=== PATIENT | female | born 1945 | race Caucasian/White ===

== ENCOUNTER 2019-03-11 18:12 | Inpatient (IN) | payer OTHER ==
[2019-03-11 18:45] VITALS: BP 134/77
[2019-03-11 19:15] VITALS: BP 134/77
[2019-03-11] MEDS ORDERED: VENTOLIN HFA 1818 GM INH (23:20)
[2019-03-11] MEDS ORDERED: LIPITOR80 MG PO (23:23)
[2019-03-11] MEDS ORDERED: ASA81BEC PO (23:23)
[2019-03-11] MEDS ORDERED: BRIVIACT50 MG PO (23:27)
[2019-03-11] MEDS ORDERED: COLACE100 MG PO (23:28)
[2019-03-11] MEDS ORDERED: VITAMIN B-12100 MC1 PO (23:28)
[2019-03-11] MEDS ORDERED: LEXAPRO 10 MG T10 M2 PO (23:29)
[2019-03-11] MEDS ORDERED: IBU800 MG PO (23:30)
[2019-03-11] MEDS ORDERED: VIMPAT100 MG PO (23:30)
[2019-03-11] MEDS ORDERED: LACTULOSE20 GM/30 M PO (23:31)
[2019-03-11] MEDS ORDERED: LITHIUM CARBON450 MG PO (23:32)
[2019-03-11] MEDS ORDERED: SYNTHROID88 MC1 PO (23:32)
[2019-03-11] MEDS ORDERED: LOSARTAN POTASS50 MG PO (23:33)
[2019-03-11] MEDS ORDERED: METOPROLOL TART25 MG PO (23:34)
[2019-03-11] MEDS ORDERED: OMEPRAZOLE 20 M20 M1 PO (23:35)
[2019-03-11] MEDS ORDERED: CENTRUM SILVER1 EAC4 PO (23:35)
[2019-03-11] MEDS ORDERED: SENNA8.6 MG PO (23:36)
--- NOTE | 2019-03-12 00:46 | NUR ---
Care assumed of patient at 1915: Patient resting in bed at start of shift. Patient alert and oriented to person only. Patient confused and forgetful. Patient speaking clear words, rambling at times. Patient calm and cooperative. Patient having disorganized thoughts at times. Patient denies SI/HI/AH/VH. No s/s of paranoia or delusional behaviors. Patient incontinent of bladder x1. Jessie care provided and linens changed. Patient has one hearing aide that she has removed to sleep. Medical records requested and received from [facility]. SIMRAN Hayward notified on behalf of Dr. Redd and has evaluated patient. Orders obtained for labs to be collected in AM. Discharge medication list reviewed with SIMRAN Fine on behalf of Dr. Galeana. Orders obtained for medications, Regular diet, DNR status, activity is up ad kaleb. Spoke with daughter, Aura TODD over the phone to verify code status. Aura does request for patient to be a DNR which is also documented in [facility] notes. Aura was notified that her mother took her HS medication and is resting well. Aura inquired which medication she received and is concerned because she had received dose of [place] 450mg at [facility] before she had discharged. This was verified with [facility] nurse, patient was provided [place] 450mg at 1637. SIMRAN Hayward, is aware. Order obtained to collect [place] level in the AM. Aura was provided with security code and visitation hours. Per [facility], patient has a hx of bipolar disorder which was diagnosed approximately 40 years ago. Patient had ECT treatments completed in the past for this diagnosis. Family reports that patient was at [facility] Psych when she had a seizure. She was then admitted to [facility] medical for stabilization. She was then admitted to our unit for medication adjustment, per family. Patient declined HS snack. Patient provided HS medication whole with water. Patient required assistance with holding water cup and tilting the cup to take a drink. Otherwise tolerated well. Order placed for PT/OT due to increased weakness and length of medical hospitalization. Order placed for brake press operator consult due to poor intake (reported by daughter).
[2019-03-12 05:48] LABS: HEMATOCRIT 37.9 % (37.0-47.0); HEMOGLOBIN 12.3 gm/dL (12.0-15.0); MCH 30.4 pg (26.0-34.0); MCHC 32.5 g/dL (28.0-37.0); MCV 93.5 fL (80.0-100.0); RBC 4.06 mil/uL (4.20-5.00); RDW 13.4 % (10.5-14.5); WBC 11.7 thou/uL (4.0-11.0)
[2019-03-12 06:14] LABS: ALBUMIN 2.9 g/dL (3.4-5.0); CALCIUM 11.5 mg/dL (8.5-10.1); CREATININE 1.1 mg/dL (0.6-1.0); POTASSIUM 3.4 mmol/L (3.5-5.1); TOTAL BILIRUBIN 0.3 mg/dL (<0.1-1.0); TOTAL PROTEIN 5.8 g/dL (6.4-8.2)
[2019-03-12 06:39] LABS: TSH 5.073 uIU/mL (0.358-3.740)
[2019-03-12 07:21] LABS: FOLIC ACID 19.6 ng/mL (8.6-58.9)
[2019-03-12 17:10] VITALS: BP 115/73
--- NOTE | 2019-03-12 17:26 | NUR ---
THE PATIENT HAS BEEN QUIET AND CALM THROUGH OUT THE DAY. SHE HAS TO HAVE ASSISTANCE WITH MEALS. SHE HAS A DIFFICULT TIME WITH MOVEMENT OF HER ARMS AND HANDS. UNSTEADY ON FEET. THE PATIENT IS INCONTINENT BUT HAS ASKED TO USE THE TOILET AT TIMES. HER DAUGHTER IS SUPPORTIVE. SHE HELPED FEED THE PATIENT HER DINNER THIS EVENING. THE PATIENT WAS ADMINISTERED KEPRA TODAY FOR SZ. SHE HAS BEEN COOPERATIVE AND COMPLIANT WITH STAFF.
--- NOTE | 2019-03-12 18:34 | NUR ---
LAB CALLED AND NOTIFIED THIS RN THAT THE LITHIUM IS 1.[address] WOODY NOTIFIED. HE ORDERED LITHIUM TO BE HELD TONIGHT. RESTART TOMORROW. LAB IS TO BE REPEATED Friday AT 6 PM.
[2019-03-12 20:00] VITALS: BP 89/43
--- NOTE | 2019-03-13 01:09 | NUR ---
Care assumed of patient at 1915: Patient alert and oriented to person only. Patient resting in bed at start of shift. Easily arousable. Head of bed elevated and nursing assessment completed. Patient calm and cooperative. Patient rambling with clear speech at times. Patient smiled and made good eye contact with nurse. Not able to answer most questions appropriately due to confusion and forgetfulness. Denies pain or discomfort. Declined HS snack. Took HS medication whole without difficulty. Drank cup of apple juice with medication. Denies SI/HI/AH/VH. No s/s of delusional or paranoia behaviors observed. HS [place] dose held per MD order. Spoke with daughter Aura who requested patient update. Patient incontinent of bladder x1. Jessie care completed and linens changed. Patient continues to rest quietly in bed at this time.
[2019-03-13 08:19] VITALS: BP 140/79
[2019-03-13 08:34] LABS: CREATININE 1.3 mg/dL (0.6-1.0); PHOSPHORUS 3.6 mg/dL (2.5-4.9)
[2019-03-13 08:38] LABS: CALCIUM 12.1 mg/dL (8.5-10.1)
--- NOTE | 2019-03-13 10:07 | NUR ---
UP IN DINING ROOM, SHE IS AWAKE AND ALERT BUT CONFUSED, SHE REFUSED HER MEDICATIONS THIS A.M. SHE TOOK A FEW BITES OF FOOD, BUT THEN DECLINED MORE, SHE IS ORIENTED TO HER NAME, WHEN ASKED QUESTIONS SHE WAS NOT SURE OF THE DATE, TIME OR PLACE, LAB CALLED WITH CRITICAL CALCIUM RESULT 12.4, SPOKE WITH JOBY REMELT OPERATOR AND CALLED TO DR. TORRES AT 0900, WE ARE ENCOURAGING FLUIDS FOR THE CALCIUM LEVEL, DR. TORRES WILL RE ASSES WHEN HE ROUNDS. ORDERS FROM JOBY TO HOLD LITHIUM AGAIN TONIGHT FOR HIGH LEVEL LAB TO BE DONE TOMORROW. CONTINUE TO MONITOR FOR BEHAVIORS AND SAFETY.
[2019-03-13 19:55] VITALS: BP 134/68
--- NOTE | 2019-03-13 23:22 | NUR ---
Care assumed of patient at 191: Patient seated in w/c in day room at table at start of shift. Patient alert and oriented to person. Patient confused and forgetful. Patient asking for the doctor and for her son this evening. Patient irritable and agitated. Patient asking why she is in the hospital. Educated that the doctors are looking at her medication regimen. Patient states that she hasn't seen the doctor or her family for "days" and nurse is a "big liar". Patient did not show any physical aggression. Patient denies pain or discomfort. Patient having disorganized speech, repetitive with what she states. Patient has a saline lock to her left hand. No redness, drainage or swelling observed. Patient continent and incontinent of bladder this evening. Jessie care provided, linens changed and barrier cream applied to buttock. Patient took HS medications whole but was very agitated while taking medications. Patient required one step simple directions. Patient ate approximately 25% of yogurt fed to her. Patient did drink 120cc water with minimal assist. Patient denies SI/HI/AH/VH. Possible paranoia present. Stated she did not want to eat the rest of her yogurt because "you guys put medicine in that stuff". Patient educated and shown that her pills were whole in the cup in front of her but she was not directable. Patient assisted to bed with mod assist x1. Patient has been resting quietly.
[2019-03-14 06:12] LABS: CALCIUM 11.5 mg/dL (8.5-10.1); CREATININE 1.3 mg/dL (0.6-1.0)
[2019-03-14 06:15] LABS: POTASSIUM 2.8 mmol/L (3.5-5.1)
--- NOTE | 2019-03-14 06:22 | NUR ---
Labs obtained this AM. Lab notified nurse of K+ level of 2.8. Nurse notified SIMRAN Hayward. Order obtained for KCL 20meq q1 hour x4 doses; repeat BMP in 4 hours.
[2019-03-14 07:43] VITALS: BP 135/73
--- NOTE | 2019-03-14 11:15 | HC ---
[facility] [place] [address] CONSULTATION Name: LORENZO RAMIREZ Room #: 521B-B ADM IN M.R.#: [id number] Admission: 03/11/19 Attend Phys: Davis Galeana DO Discharge: Date of : 41 Report #: [id number] THIS REPORT FOR: //name// CC: Davis Galeana En Clark DATE OF SERVICE: 03/13/2019 ENDOCRINE CONSULTATION NOTE CONSULTING PHYSICIAN: Dr. Davis Galeana. REASON FOR CONSULTATION: Hypercalcemia. HISTORY OF PRESENT ILLNESS: This is a 73-year-old female patient who had a medical background is noted for hypertension, dementia, depression, bipolar disorder, GERD and seizure disorder. The patient has had a few weeks stay at [facility] medical unit due to bipolar disorder and depressive symptoms and was transferred to the Adult Behavioral Unit at [facility] 2 days ago. During an initial workup upon her arrival to [facility], the patient was found to have hypercalcemia at 11.5 that was later confirmed at 12.1 mg/dL. The patient is able to answer basic questions. She provided some details, but she was minimally conversant. Her daughter, Aura, was present and she provided much of the history and answers. Specifically, the patient does not have a recollection of hypercalcemia in the past; however, she believes that she had dealt with kidney stones at least once in her lifetime. She has not had issues with fractures, nausea, vomiting, constipation, abdominal pain, but she did deal with sporadic muscle and bone aches over the past few months. The patient's daughter comments that the patient had a generalized decline over the past few months and seems more depressed and less interactive. Also, her p.o. intake had been minimal. Specifically, over the past few days, the patient has had very little to eat or drink and the daughter believes that she is dehydrated. The patient's body weight had gone down over the past month, but not prior. REVIEW OF SYSTEMS: CONSTITUTIONAL: Fatigue, tiredness, weight loss over the past month. No fever or chills. HEENT: Negative for sinus pain, ear drainage. PULMONARY: Occasional shortness of breath and cough. No hemoptysis. CARDIAC: No syncope, chest pain, palpitation, occasional leg edema. GASTROINTESTINAL: Negative for nausea, vomiting, abdominal pain, constipation. [address] [address] CONSULTATION Name: AUGUSTOMARY KATELORENZO Room #: 521B-B [facility] IN M.R.#: [id number] Admission: 03/11/19 Attend Phys: Davis Galeana DO Discharge: Date of : 41 Report #: [id number] MUSCULOSKELETAL: Noted for arthralgia, myalgia. NEUROLOGY: No dizziness, lightheadedness, or loss of consciousness, but the patient was reported to have a seizure as of a few days ago. PSYCHIATRIC: Deepening depression, bipolar disorder, minimal interaction and conversation. SKIN: No rash, ulceration, discoloration or other major abnormalities. Otherwise, review of systems noncontributory other than those mentioned in HPI. PAST MEDICAL HISTORY: 1. Bipolar disorder. 2. Depression. 3. Hypertension. 4. Seizure disorder. 5. Hypothyroidism. 6. Metabolic encephalopathy. 7. Rheumatic mitral valve disease. 8. Acute kidney injury. 9. Vitamin B12 deficiency. 10. Cerebrovascular accident. CURRENT MEDICATIONS: Aspirin 81 mg daily, cyanocobalamin 100 mcg daily, escitalopram 50 mg daily, lactulose 20 mg b.i.d., losartan 50 mg daily, metoprolol 25 mg daily, multivitamins daily, levothyroxine 88 mcg daily, pantoprazole 40 mg daily, atorvastatin 80 mg daily, docusate 100 mg at bedtime, haloperidol 2.5 mg q. 4 hours p.r.n., lithium 450 mg at bedtime. ALLERGIES: LISINOPRIL. FAMILY HISTORY: Noncontributory. SOCIAL HISTORY: The patient is a as of 4 years ago. She lives with her son. She is an ex-smoker. There is no active use of tobacco, alcohol or illicit drugs. PHYSICAL EXAMINATION: GENERAL: An elderly female patient, sitting in a wheelchair, appears lethargic, but not in apparent pain or distress. VITAL SIGNS: Blood pressure is 140/79 mmHg, heart rate is 92 beats per minute, respirations 20 per minute, temperature 37.1 degrees. CONSTITUTIONAL: Elderly female patient who appears underweight, lethargic, but not in apparent pain or distress. HEENT: Anicteric sclerae. Intact extraocular motions. NECK: Supple, without JVD, carotid bruits or lymphadenopathy. I do not appreciate thyromegaly. CHEST: Noted for moderate air entry with scattered rales. [facility] [address] [place] [address] CONSULTATION Name: LORENZO RAMIREZ Room #: [facility] ADM IN M.R.#: [id number] Admission: 03/11/19 Attend Phys: Davis Galeana, DO Discharge: Date of : 41 Report #: [id number] HEART: Regular rate and rhythm without murmurs, rubs or gallops. ABDOMEN: Soft and lax, without guarding, tenderness, or organomegaly. EXTREMITIES: Lower extremity exam, trace ankle edema. No skin breaks, ulcerations or other deformities. NEUROLOGIC: Lethargic, but interactive, awake, alert. The exam is largely nonfocal. PSYCH: Flat mood and affect, minimally conversant. LABORATORY RESULTS: Sodium 138, potassium 3.4, chloride 105, CO2 of 25, anion gap of 8, BUN 11, creatinine 1.3, glucose 91. AST 20, total bilirubin 0.3, calcium 11.5 and is higher today at 12.1 mg/dL, phosphorus 3.6, alkaline phosphatase 85, ALT 22, total protein 5.8, albumin 2.9, GFR 48, ammonia 32. White blood count 11.7, hemoglobin 12.3, hematocrit 37.9, platelets 422. TSH is 5.073, folate 19.6, vitamin B12 ____, vitamin D and PTH levels are pending. ASSESSMENT AND PLAN: 1. Hypercalcemia. The patient has documented hypercalcemia on 2 occasions over the past 24 hours and with her latter calcium level of 12.1 mg/dL, the patient can be labeled as having severe hypercalcemia. Whether this has contributed at least partially to her declining mental state, poor appetite and worsening kidney function is unclear, but it is certainly possible. I discussed this issue with the patient and her daughter, Aura, at length and I counseled them about the potential etiologies for hypercalcemia. I stressed the fact that given the severity of her hypercalcemia that we need to initiate medical management to be aimed at alleviating the level of hypercalcemia that is noted here. Namely, I would like the patient to be aggressively hydrated and her calcium monitor closely. In the event that she is not responsive to these measures, then one could consider diuresis along with hydration and potentially pharmaceutical intervention in the form of zoledronic acid or calcitonin if needed. I am hopeful; however, that aggressive hydration will result in a significant improvement short term. Besides the immediate management of hypercalcemia and the frequent monitoring of this issue, defining the causative etiology would be a rather crucial so that we could definitively help the patient with this issue. Hyperparathyroidism is the likely suspect and Dr. Galeana had already ordered a PTH level and vitamin D levels. I will await these and if her outlook is explained on the basis of a primary hyperparathyroidism, then I will proceed with further studies to localize the causative PTH adenoma as the patient would be indicated for surgery at least on the basis of documenting severe hypercalcemia. However, if she does not prove to be hyperparathyroid then secondary workup for hypercalcemia will be needed. 2. Hypothyroidism. The patient has longstanding hypothyroidism and is maintained on levothyroxine 88 mcg daily. Her TSH is indicative of inadequate control. I will raise her dosage to 100 mcg daily. [address] [address] CONSULTATION Name: LORENZO RAIMREZ Room #: 521B-B [facility] IN .R.#: [id number] Admission: 03/11/19 Attend Phys: Davis Galeana, DO Discharge: Date of : 43 Report #: [id number] 3. Hypertension. The patient's level of blood pressure control is adequate, she is to continue with the current regimen. 4. Hyperlipidemia. The patient is on atorvastatin therapy and tolerates it well, she is advised to continue the same. I reviewed the patient's medical records, laboratory data and other personal and clinical information from her electronic chart for over 35 minutes. I appreciate this consultation by Dr. Galeana. <ELECTRONICALLY SIGNED> By: Bonita Galicia MD 03/14/19 1115 1202 [id number] Bonita Galicia MD /nt
[2019-03-14 11:18] LABS: CREATININE 1.2 mg/dL (0.6-1.0); POTASSIUM 3.6 mmol/L (3.5-5.1)
[2019-03-14 11:19] LABS: CALCIUM 12.2 mg/dL (8.5-10.1)
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
--- NOTE | 2019-03-14 16:51 | NUR ---
NOTED TO HAVE LABILE MOOD THROUGHOUT SHIFT-INITALLY THIS AM WAS COOPERATIVE,CALM AND FOLLOWS VERBAL INSTRUCTIONS -COMPLIENT WITH TAKING MULTIPLE DOSES OF POTASSIUM Q 1 HR ORDERED BY MD-TAKE PO FLUIDS WELL FED AT MEALTIMES BY THIS RN BUT IS RESISITVE WITH FOOD AFTER TAKING A FEW BITES STATING "I'M FULL" OR "NO ARELY HAD ENOUGH" DID TAKE ALL OF ENSURE DRINK AND ENSURE PUDDING AT APPROX 1100- CRITICAL CALCIUM OF 12.2 CALLED TO ELEVATOR OPERATOR SERVICE AT APPROX 1030-DR. TORRES CONTACTED AT 1035-DR. BOYD ON UNIT TO SEE PT AT APPROX 1130 AND SPOKE WITH DAUGHTER PEYTON CONTE AT HER REQUEST-DAUGHTER REQUESTING PT BE TRANSFERED TO MEDICAL FLOOR AND THIS MESSAGE RELAYED TO BOTH DR. COWAN AND DR. [id number] DID AGREE TO HAVE PT STAY ON UNIT WITH IV BOLUS OF NS 0.9 AND 20MEQ KCL-WITH PLAN TO REPEAT LABS AT 1800 AND 0400 WITH POSSIBLE DC TO MED SURG IF NO IMPROVEMENT-DAUGHTER IN AGREEMENT WITH PLAN. IV BOLUS STARTED AT APPROX 1300 IN EXISITING SALINE LOCK IN LEFT HAND-INFUSED 1000ML AT 250CC/HR AND DC'D AT APPROX 1800. WAS NOTED TO BE SEDATED AFTER AM MEDICATIONS BUT INCREASINGLY ALERT WITH NOTED AGITATION,IRRITABILITY AND PARANOIA PM PROGRESSES-SWEARING AT STAFF ACCUSING STAFF OF TRYING TO "PUSH ME OVER" WHEN BEING ASSISTED BY STAFF TO BR-PULLING AWAY ATTEMPTING TO KICK OUT AT STAFF LOOSING BALANCE AND WOULD HAVE FALLEN TO FLOOR IF NOT BEING ASSISTED -HALDOL 2.5 MG PO OFFERED AND REFUSED AT APPROX 1630-WILL CONINUE TO MONITOR
[2019-03-14 19:49] LABS: ALBUMIN 3.1 g/dL (3.4-5.0); CALCIUM 11.9 mg/dL (8.5-10.1); CREATININE 1.2 mg/dL (0.6-1.0); POTASSIUM 4.6 mmol/L (3.5-5.1); TOTAL BILIRUBIN 0.4 mg/dL (<0.1-1.0); TOTAL PROTEIN 6.1 g/dL (6.4-8.2)
[2019-03-14 20:12] VITALS: BP 159/83
[2019-03-15 05:57] LABS: CALCIUM 11.6 mg/dL (8.5-10.1); CREATININE 1.2 mg/dL (0.6-1.0); TOTAL BILIRUBIN 0.4 mg/dL (<0.1-1.0); TOTAL PROTEIN 5.6 g/dL (6.4-8.2)
[2019-03-15 05:58] VITALS: BP 159/83
[2019-03-15 09:04] VITALS: BP 158/83
[2019-03-15 13:48] VITALS: BP 158/83
[2019-03-15] MEDS ORDERED: KEPPRA 500 MG500 M1 PO (14:35)
[2019-03-15] MEDS ORDERED: VIMPAT100 MG PO (14:35)
[2019-03-15] MEDS ORDERED: SYNTHROID100 MC1 PO (14:37)
[2019-03-15] MEDS ORDERED: PROTONIX 20 MG20 MG PO (14:37)
--- NOTE | 2019-03-15 15:56 | NUR ---
SW spoke with [facility] for a possible transfer and finally family decided to keep this pt at this hospital and will transfer to the medical unit. This was reported to Dr alfaro.
--- NOTE | 2019-03-15 16:28 | NUR ---
Patient discharged to medical floor. Patient leaving unit with IV in place. Patient traveling to medical floor via wheelchair with RN.
--- NOTE | 2019-03-15 16:39 | NUR ---
PT. ESCORTED TO ROOM 455. AMANUEL BELL RN GAVE REPORT TO NURSING FLOOR. ALL BELONGINGS SENT WITH THE PT.
[2019-03-15] MEDS ORDERED: SENOKOT8.6 MG PO (18:07)
[2019-03-15] MEDS ORDERED: DULCOLAX STOOL100 M1 PO (18:08)
[2019-03-15] MEDS ORDERED: HALDOL5 MG/1 ML IM (18:10)
[2019-03-15] MEDS ORDERED: HALOPERIDOL 2 MG2 M1 PO (18:11)
[2019-03-15] MEDS ORDERED: SEROQUEL 25 MG25 MG PO (18:15)
[2019-03-15] MEDS ORDERED: ACETAMINOPHEN650 M5 PO (18:18)
[2019-03-15] MEDS ORDERED: CEPACOL SORE T1 EAC7 PO (18:21)
[2019-03-15] MEDS ORDERED: [UNRECOGNIZED DRUG - OTHER] TOP (18:22)
[2019-03-15] MEDS ORDERED: ONDANSETRON HCL4 M3 PO (18:23)
[2019-03-15] MEDS ORDERED: NF PO ×2 (18:34→18:35)
--- NOTE | 2019-03-16 22:24 | D ---
[facility] [place] [address] DISCHARGE SUMMARY Name: AUGUSTOMARY KATELORENZO Jessica Room #: 521B-B [facility] IN M.R.#: [id number] Admission: 03/11/19 Attend Phys: Davis Galeana DO Discharge: 03/15/19 Date of : 41 Report #: [id number] THIS REPORT FOR: //name// CC: Davis Galeana En Clark DATE OF SERVICE: 03/15/2019 INPATIENT PSYCHIATRIC DISCHARGE SUMMARY ATTENDING PHYSICIAN: Davis Galeana DO. USER EXPERIENCE ARCHITECT: Randy Buenrostro MD DISCHARGE DIAGNOSES: Delirium secondary to general medical condition, namely critical hypercalcemia, acute kidney injury, electrolyte disturbance, also major depression by history. The patient is being discharged to the medical surgical unit at [facility] for additional evaluation and care including malignancy workup, endocrinology consultation and treatment of her kidney injury. DISCHARGE MEDICATIONS: Lacosamide 100 mg p.o. b.i.d., Keppra 500 mg p.o. b.i.d., pantoprazole 40 mg p.o. daily, levothyroxine 100 mcg p.o. daily, albuterol 2 puffs inhaled q. 6 p.r.n. for wheezing, aspirin 81 mg p.o. daily for cardioprotection, atorvastatin 80 mg p.o. at bedtime for hyperlipidemia, cyanocobalamin 100 mcg p.o. daily, Lexapro 15 mg p.o. daily for depression, Lactulose 20 mg p.o. b.i.d. for history of hyperalbuminemia, losartan 50 mg p.o. daily for hypertension, metoprolol tartrate 25 mg p.o. daily for hypertension, multivitamin p.o. daily. DIET: The patient's diet will be per the medical team. ACTIVITY LEVEL: As tolerated. The patient does not need suicide precautions. REASON FOR ADMISSION TO GERIATRIC PSYCHIATRY: The patient was interim hospital transfer from [facility] for refractory major depression. HOSPITAL COURSE: The patient was admitted to the geriatric psychiatry unit. Unfortunately, a little progress was made. The patient has been on lithium for 40 years and aside from her hypercalcemia which became critical, her value at Research was 10.9 with a low albumin, so it was more like 11.9, but she increased to 13 range when adjusted for hyperalbuminemia. Her PTH is normal range at 22, suggesting this is not a parathyroid etiology. Other crucial labs, white count 11.7, platelet count 422. Chemistries include albumin 3.0, total protein 5.6, ALT 23, calcium 11.6, ionized calcium 7.3, sodium 140. Heeia level also during her psychiatric stay came back at 1.6. [address] [address] DISCHARGE SUMMARY Name: LORENZO RAMIREZ Room #: 521B-B [facility] IN M.R.#: [id number] Admission: 03/11/19 Attend Phys: Davis Galeana DO Discharge: 03/15/19 Date of : 41 Report #: [id number] CONDITION AT DISCHARGE: Guarded. PHYSICAL EXAMINATION: VITAL SIGNS: On the day of discharge, temperature 36.3, pulse 71, respirations 17, BP 158/83, O2 sat 97%. MUSCULOSKELETAL: Seated in wheelchair, appearing somewhat weak, lethargic. MENTAL STATUS EXAMINATION: This is a well-developed female, wearing glasses, appearing stated age. Attention limited. Concentration limited. Speech soft, slow. Thought process linear and limited. Thought content, relative poverty of thought. No psychomotor agitation. No psychomotor retardation. Denied SI, HI. Some helplessness, some hopelessness. Memory not formally tested. Insight limited. Judgment limited. Fund of knowledge below average at present time. PROGNOSIS: For this patient is guarded and will depend on her response to medical treatment and etiology of her abnormal physiology. Also please note I will be happy to consult on her while she is on the med/surg floor as desired by Dr. Buenrostro. <ELECTRONICALLY SIGNED> By: Davis Galeana DO 03/16/19 2224 [id number] Davis Galeana DO /nt
== END 2019-03-15 16:30 | DRG 881 ==
LOC: SBH
PROVIDERS: Hospitalist; Internal Medicine; Nurse Practitioner Family; ADMIT Psychiatry & Neurology Psychiatry
DX: F32.9 Major depressive disorder, single episode, unspecified (principal); E43 Unspecified severe protein-calorie malnutrition; N17.9 Acute kidney failure, unspecified; E72.20 Disorder of urea cycle metabolism, unspecified; R41.0 Disorientation, unspecified; G40.909 Epilepsy, unspecified, not intractable, without status epilepticus; F03.90 Unspecified dementia, unspecified severity, without behavioral disturbance, psychotic disturbance, mood disturbance, and anxiety; I10 Essential (primary) hypertension; E78.5 Hyperlipidemia, unspecified; K21.9 Gastro-esophageal reflux disease without esophagitis; Z66 Do not resuscitate; K59.00 Constipation, unspecified; E03.9 Hypothyroidism, unspecified; R13.10 Dysphagia, unspecified; E53.8 Deficiency of other specified B group vitamins; E83.52 Hypercalcemia; Z79.82 Long term (current) use of aspirin; Z79.899 Other long term (current) drug therapy; Z81.1 Family history of alcohol abuse and dependence; E86.0 Dehydration
CPT/HCPCS: 10880

== ENCOUNTER 2019-03-15 15:12 | Inpatient (IN) | payer OTHER ==
[~2019-03-15] VITALS: Ht 160 cm; Wt 59.0 kg
[~2019-03-15 15:12] MED LIST: ASA81BEC PO; BRIVIACT50 MG PO; CENTRUM SILVER1 EAC4 PO; COLACE100 MG PO; IBU800 MG PO; KEPPRA 500 MG500 M1 PO; LACTULOSE20 GM/30 M PO; LEXAPRO 10 MG T10 M2 PO; LIPITOR80 MG PO; LITHIUM CARBON450 MG PO; LOSARTAN POTASS50 MG PO; METOPROLOL TART25 MG PO; OMEPRAZOLE 20 M20 M1 PO; PROTONIX 20 MG20 MG PO; SENNA8.6 MG PO; SYNTHROID100 MC1 PO; SYNTHROID88 MC1 PO; VENTOLIN HFA 1818 GM INH; VIMPAT100 MG PO; VITAMIN B-12100 MC1 PO
[2019-03-15] MEDS ORDERED: SENOKOT8.6 MG PO (18:07)
[2019-03-15] MEDS ORDERED: DULCOLAX STOOL100 M1 PO (18:08)
[2019-03-15] MEDS ORDERED: HALDOL5 MG/1 ML IM (18:10)
[2019-03-15] MEDS ORDERED: HALOPERIDOL 2 MG2 M1 PO (18:11)
[2019-03-15] MEDS ORDERED: ACETAMINOPHEN650 M5 PO (18:18)
[2019-03-15] MEDS ORDERED: CEPACOL SORE T1 EAC7 PO (18:21)
[2019-03-15] MEDS ORDERED: [UNRECOGNIZED DRUG - OTHER] TOP (18:22)
[2019-03-15] MEDS ORDERED: ONDANSETRON HCL4 M3 PO (18:23)
[2019-03-15] MEDS ORDERED: NF PO ×2 (18:34→18:35)
--- NOTE | 2019-03-15 19:53 | NUR ---
Received pt from with IV line on the left hand [facility] IV running. Pt placed on bed with family at the bedside. Med req done and MD informed. Endorsed to the night nurse. VS stable.
[2019-03-15 20:15] VITALS: BP 146/76
--- NOTE | 2019-03-16 02:47 | NUR ---
PT PRESENTS SUPINE IN BED WITH FAMILY AT BEDSIDE AT BEGINNING OF SHIFT. PT LETHARGIC, DISORIENTED X4. PT RESPONSIVE TO NAME AND TOUCH. PT HARD OF HEARING, NO HEARING AIDES PRESENT AT THIS TIME. PT VOCAL TONE LOW. FLACC SCORE OF 0. PT HAS NO REPORTS OF PAIN. PT OBSERVED WITH APNEA WHILE SLEEPING. LUNGS CLEAR TO AUSCULTATION. BOWEL SOUNDS HYPOACTIVE. TRACE EDEMA NOTED IN BLE. PT CONTINUES ON MECHANICAL SOFT DIET. MEDICATIONS CRUSHED AND PUT IN APPLESAUCE FOR ADMINISTRATION. PT TOLERATING THIN LIQUIDS WITHOUT ISSUE. PT REPOSITIONED Q2HR TO PROMOTE SKIN INTEGRITY. EXTERNAL FEMALE CATHETHER IN PLACE PT REMAINS INCONTINENT OF BOWEL AND BLADDER.ENCOURAGED TO NOTIFY STAFF OF ALL CONCERNS. CALL LIGHT WITHIN REACH, BED AT LOWEST POSITION, BED ALARM ON.
[2019-03-16 03:23] VITALS: BP 148/82
[2019-03-16 06:07] LABS: BASOPHILS 0.9 % (0.0-2.0); EOSINOPHILS 9.5 % (0.0-3.0); HEMATOCRIT 32.3 % (37.0-47.0); HEMOGLOBIN 10.7 gm/dL (12.0-15.0); LYMPHOCYTES 15.9 % (24.0-44.0); MCH 30.9 pg (26.0-34.0); MCHC 33.1 g/dL (28.0-37.0); MCV 93.6 fL (80.0-100.0); MONOCYTES 6.6 % (1.0-8.0); PLATELET COUNT 273 thou/uL (150-400); POLYS 67.1 % (36.0-66.0); RBC 3.45 mil/uL (4.20-5.00); RDW 13.5 % (10.5-14.5); WBC 8.9 thou/uL (4.0-11.0)
[2019-03-16 06:14] LABS: CALCIUM 10.9 mg/dL (8.5-10.1); CREATININE 1.2 mg/dL (0.6-1.0); MAGNESIUM 1.8 mg/dL (1.8-2.4); POTASSIUM 3.4 mmol/L (3.5-5.1)
[2019-03-16 07:39] VITALS: BP 146/81
[2019-03-16 07:41] LABS: URINE BILIRUBIN NEGATIVE (Negative); URINE BLOOD TRACE (Negative); URINE CLARITY CLOUDY; URINE COLOR YELLOW; URINE GLUCOSE-RANDOM* NEGATIVE (Negative); URINE KETONES NEGATIVE (Negative); URINE NITRITE-REFLEX NEGATIVE (Negative); URINE PROTEIN (DIPSTICK) NEGATIVE (Negative); URINE UROBILINOGEN 0.2 E.U./dl (0.2-1.0)
[2019-03-16 07:44] LABS: URINE LEUKOCYTES-REFLEX 3+ (Negative)
[2019-03-16 08:36] LABS: AMORPHOUS URATES Moderate /LPF (None Seen); BACTERIA-REFLEX 1-9 Few /HPF (None Seen); CASTS None Seen /LPF (None Seen); SQUAMOUS 0-3 Few /LPF (0-3); URINE RBC 0-2 Rare /HPF (0-2); URINE WBC-REFLEX >25 Many /HPF (0-5); WBC CLUMPS Few (None Seen)
--- NOTE | 2019-03-16 10:56 | NUR ---
Nutrition: REC consider change IVFs to Clinimix PPN at 100 mL/hr to prevent further nutritional decline/until po improves. Pt with severe malnutrition, weight loss, poor intake past ~3 weeks. Nutrition interventions in place.
[2019-03-16 15:42] VITALS: BP 110/70
--- NOTE | 2019-03-16 15:51 | NUR ---
PT ADMITTED FROM [address] [place] [address] RELATED TO HYPERCALCEMIA, METABIOLIC ENCEPHALOPATHY. CM REVIEWED CHART AND SPOKE WITH CARE TEAM. CM MET WITH PT AND SON CASSANDRA AT BEDSIDE THIS DAY. PT WAS SLEEPING AND SON ANSWERED QUESTIONS. HE INDICATED THAT PT HAD BEEN LIVING IN A HOUSE WITH HIM WITH 10 STEPS TO ENTER AND NO STEPS INSIDE. 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 HE INDICATED THAT PT'S PCP IS DR. KELLER. TRELL CALLED AND SPOKE WITH PT'S DTR HC DPOA AND SHE INDICATED THAT PT HADN'T WALKED SINCE February. SHE INDICATED THAT PT MIGHT NEED POST ACUTE CARE STAY. TRELL EXPLAINED ACUTE VS SKILLED AND LEVEL II SCREENING STUFF. CM TO AWAIT THEREAPY EVALS AND WORK WITH CARE TEAM AND FAMILY TO FACILITATE DC NEEDS.
--- NOTE | 2019-03-16 18:21 | NUR ---
Received awake on bed. Due medications given as prescribed- able to swallow meds one by one, aspiration precaution observed. A+O to self only. On room air. Vital signs stable. Assisted in ADLs. With on and off confusion- re-oriented. With NS at 125cc/hr, infusing well at R hand. Turned on her sides regularly. On mechanically chopped diet- assisted and encouraged in eating and drinking. Able to use bedside commode and bedpan to pass urine, pt able to have a bowel movement today- charted. Pt seen by Dr Reese- Zoledronic Acid prescribed, one time dose to be given as prescribed; Pt's IV infiltrated, re-inserted to R hand. Pt visited by his son and daughter today. Went down for CT scan- done and pt returned to her room safely. Falls risk- falls bundle in place. With bilateral leg edema- legs kept elevated, SCDs on. To continue monitoring patient.
[2019-03-16 19:25] VITALS: BP 144/77
[2019-03-17 03:20] VITALS: BP 140/66
[2019-03-17 04:58] LABS: HEMATOCRIT 31.1 % (37.0-47.0); HEMOGLOBIN 10.4 gm/dL (12.0-15.0); MCHC 33.3 g/dL (28.0-37.0); MCV 93.1 fL (80.0-100.0); RBC 3.34 mil/uL (4.20-5.00); RDW 13.3 % (10.5-14.5); WBC 8.8 thou/uL (4.0-11.0)
[2019-03-17 05:05] LABS: ALBUMIN 2.4 g/dL (3.4-5.0); CALCIUM 10.2 mg/dL (8.5-10.1); CREATININE 1.1 mg/dL (0.6-1.0); POTASSIUM 3.1 mmol/L (3.5-5.1); TOTAL BILIRUBIN 0.3 mg/dL (<0.1-1.0)
[2019-03-17 07:20] VITALS: BP 152/85
--- NOTE | 2019-03-17 07:24 | NUR ---
ASSUMED CARE OF PT AT 1900HRS. PT IS ALERT BUT ONLY ORIENTED TO SELF AND PLACE. FALL PRECAUTION IN PLACE. PT DOES NOT USE CALL LIGHT INSTRUCTED. NEEDS NEED TO BE ANTICIPATED. VSS AND NO COMPLAINTS OF NAUSEA OR PAIN. PT WAS ABLE TO SLEEP PART OF THE SHIFT. PT IS PROGRESSING TOWARDS DC GOALS.
--- NOTE | 2019-03-17 10:55 | HC ---
[facility] [place] [place] [address] CONSULTATION Name: LORENZO RAMIREZ Room #: 455-P [facility] IN ..#: [id number] Admission: 03/15/19 Attend Phys: Randy Buenrostro MD Discharge: Date of : 41 Report #: [id number] THIS REPORT FOR: //name// CC: Randy Clark DATE OF SERVICE: 03/16/2019 ENDOCRINE CONSULTATION NOTE CONSULTING PHYSICIAN: Liz Pierce NP REASON FOR CONSULTATION: Hypercalcemia. HISTORY OF PRESENT ILLNESS: This is a 73-year-old female patient with a medical background that is noted for dementia, depression, bipolar disorder, hypertension, hyperlipidemia, GERD, who was [facility]2019 due to her psych issues. While there, the patient was noted to have hypercalcemia, which upon further investigation proved to be severe at 12.1 mg/dL. Subsequently, the patient was investigated for hyperparathyroidism and given 2 boluses of fluids, but without much response. Notably, the patient's course had been marked by declining appetite, mental activity, overall activity, slight weight loss, but no nausea, vomiting, constipation. The patient does not have a prior history of kidney stones or fractures. There have not been major medicinal changes lately that she could recall. REVIEW OF SYSTEMS: CONSTITUTIONAL: Fatigue, tiredness, weight loss, no fever or chills, poor appetite. HEENT: Negative for sore throat, sinus pain, ear drainage. PULMONARY: Occasional shortness of breath, dyspnea on exertion. No cough or hemoptysis. CARDIAC: Negative for chest pain, palpitations, syncope or presyncope. Noted for occasional lower extremity swelling. GASTROINTESTINAL: Negative for nausea, vomiting, major issues with constipation or diarrhea. MUSCULOSKELETAL: Occasional aches and pains, joint aches. PSYCHIATRIC: Depression, poor concentration, lack of social drive. NEUROLOGY: Negative for loss of consciousness, seizures or headaches. Otherwise, her review of systems is noncontributory other than what is mentioned in HPI. PAST MEDICAL HISTORY: Hypertension, hyperlipidemia, GERD, depression, dementia, hypothyroidism, seizure activity. [facility] [address] [place] [address] CONSULTATION Name: AUGUSTOMARY KATELORENZO Room #: 455-P [facility] IN ..#: [id number] Admission: 03/15/19 Attend Phys: Randy Buenrostro MD Discharge: Date of : 41 Report #: [id number] OUTPATIENT MEDICATIONS: Albuterol q.6 hours p.r.n., aspirin 81 mg daily, atorvastatin 80 mg q.p.m., citalopram 50 mg daily, lactulose 20 mg b.i.d., losartan 50 mg daily, metoprolol 25 mg daily, Colace 1 cap at bedtime, haloperidol 2.5 mg q.4 hours agitation, levothyroxine 88 mcg, pantoprazole 20 mg. ALLERGIES: There are allergies to LISINOPRIL. FAMILY HISTORY: Noncontributory. SOCIAL HISTORY: She lives with her son. She denies use of tobacco, alcohol or illicit drugs. PHYSICAL EXAMINATION: GENERAL: Pleasant female patient who is not in apparent pain or distress. VITAL SIGNS: Blood pressure is 146/81 mmHg, heart rate is 72 beats per minute, respirations 20 per minute, temperature is 36.9 degrees. CONSTITUTIONAL: The patient lies in bed, appears comfortable, not in apparent distress. HEENT: Anicteric sclerae. Intact extraocular motions. NECK: Supple, without JVD, carotid bruits or lymphadenopathy. I do not appreciate thyromegaly. CHEST: Clear to auscultation with good air entry bilaterally. There was no wheeze or crackles. HEART: Regular rate and rhythm without murmurs or gallops. ABDOMEN: Soft and lax without tenderness or organomegaly. She has active bowel sounds. EXTREMITIES: Lower extremity exam, trace ankle edema. No skin breaks, deformities. Good pedal pulses. NEUROLOGIC: Awake, alert and oriented to time, place and person. The remainder of her examination is nonfocal. PSYCHIATRIC: Normal mood and affect, far more interactive than when I saw her a few days ago. LABORATORY RESULTS: Calcium levels have ranged from 11.5-12.1, today it is 10.9 mg/dL. PTH is 22. Sodium 140, potassium 3.4, chloride 110, CO2 of 22, anion gap of 8, BUN 11, creatinine 1.2, glucose 91. AST 22, total bilirubin 0.4, phosphorus 3.6, magnesium 1.8, alkaline phosphatase 94, ALT 23, total protein 5.6, albumin is 3.0. GFR 44. Ammonia is 32. White blood count 8.9, hemoglobin 10.7, hematocrit 32.3, platelets 273. Vitamin D is 36.9. ASSESSMENT AND PLAN: 1. Hypercalcemia. By definition, the level of hypercalcemia that was detected is severe, having been at or more than 12 mg/dL. This certainly signifies a [facility] [address] [place] [address] CONSULTATION Name: LORENZO RAMIREZ Room #: 455-P [facility] IN M.R.#: [id number] Admission: 03/15/19 Attend Phys: Randy Buenrostro MD Discharge: Date of : 41 Report #: [id number] pathologic process. Most commonly, hypercalcemia would be eventually found to be due to hyperparathyroidism. However, the patient ruled out for this issue definitively with her stated PTH level. That said, the search now is for a secondary cause of hypercalcemia, which would include multiple myeloma, humeral malignancy, adrenal insufficiency, sarcoidosis. The appropriate workup had been launched to investigate these potential causes. In the immediate setting, it would be prudent to ensure that the patient remains safe from the standpoint of controlling her calcium levels to where there is not the threat of further dehydration or renal insufficiency. Aggressive IV fluid support would be must and she responded rather nicely to this, to where her calcium fell rapidly to 10.9 mg/dL and she experienced significant symptomatic improvement. While we await her workup and later on pursue solutions for whatever etiology that we end up identifying, I would like to also offer the patient zoledronic acid infusion one time only in order to give us stability for the next 3-6 weeks. The patient will be monitored around the time of the Zometa infusion and her calcium will be monitored again tomorrow. I stressed the importance of adequate hydration. 2. Hypothyroidism. Upon presentation, the patient's level of thyroid hormone replacement was inadequate where her TSH was at 5.07. This resulted in the titration of her dose of levothyroxine from 88 to 100 mcg daily. Further TFT followup will be needed in 6-8 weeks from now. 3. Hypokalemia. The patient had issues with hypokalemia yesterday with a K of 2.8. This was resuscitated and she did well with her potassium initially going to 4 and then 3.4. This will be resuscitated as needed. 4. Hyperlipidemia. The patient is currently on atorvastatin therapy and tolerates it well, she is to continue with the same. 5. Hypertension. The patient's level of blood pressure control is adequate. She is to continue with the current regimen of losartan and metoprolol. I have reviewed the patient's clinical care reports, laboratory reports and other pertinent data from her electronic medical record for over 35 minutes. <ELECTRONICALLY SIGNED> By: Bonita Galicia MD 03/17/19 1055 1156 1224 Bonita Galicia MD /nt
[2019-03-17 15:05] VITALS: BP 116/62
--- NOTE | 2019-03-17 15:52 | NUR ---
PT A&O TO SELF AND PLACE. IV INTACT IN R HAND INFUSING FLUIDS W/O COMPS. UP WITH ASSIST WITH PT, USING BEDPAN TODAY. REQUIRES ASSIST TO FEED. HAS HAD SOME NAUSEA TODAY, NO PAIN. DAUGHTER AT BEDSIDE.
[2019-03-17 20:07] VITALS: BP 126/68
[2019-03-18 05:02] LABS: HEMATOCRIT 29.2 % (37.0-47.0); HEMOGLOBIN 9.7 gm/dL (12.0-15.0); MCH 31.1 pg (26.0-34.0); MCHC 33.3 g/dL (28.0-37.0); MCV 93.4 fL (80.0-100.0); RBC 3.13 mil/uL (4.20-5.00); RDW 13.9 % (10.5-14.5); WBC 7.5 thou/uL (4.0-11.0)
[2019-03-18 05:17] LABS: ALBUMIN 2.2 g/dL (3.4-5.0); CALCIUM 8.3 mg/dL (8.5-10.1); CREATININE 1.1 mg/dL (0.6-1.0); TOTAL BILIRUBIN 0.2 mg/dL (<0.1-1.0); TOTAL PROTEIN 4.8 g/dL (6.4-8.2)
[2019-03-18 05:30] LABS: POTASSIUM 2.9 mmol/L (3.5-5.1)
--- NOTE | 2019-03-18 06:00 | NUR ---
Pt. rested quietly during the night when checked on during frequent rounds. She offers no c/o pain. Up to the [facility] with assistance of two. Bed alarm is on.
[2019-03-18 08:40] VITALS: BP 147/90
[2019-03-18 15:34] VITALS: BP 119/66
--- NOTE | 2019-03-18 19:11 | NUR ---
Assumed patient care at 0715. Patient has been pleasantly confused throughout this shift. She has had a poor appetite. Family has been at bedside for part of this shift. Patient was up to commode with assist times two. Vital signs have been stable. POC followed. Will report to on-coming nurse.
[2019-03-18 20:16] VITALS: BP 143/81
[2019-03-19 06:00] LABS: HEMATOCRIT 27.6 % (37.0-47.0); HEMOGLOBIN 9.2 gm/dL (12.0-15.0); MCH 30.8 pg (26.0-34.0); MCHC 33.2 g/dL (28.0-37.0); MCV 92.7 fL (80.0-100.0); RBC 2.98 mil/uL (4.20-5.00); RDW 13.9 % (10.5-14.5); WBC 4.9 thou/uL (4.0-11.0)
[2019-03-19 06:21] LABS: CALCIUM 7.7 mg/dL (8.5-10.1); CREATININE 0.9 mg/dL (0.6-1.0); MAGNESIUM 1.4 mg/dL (1.8-2.4); PHOSPHORUS 1.7 mg/dL (2.5-4.9); POTASSIUM 4.1 mmol/L (3.5-5.1)
[2019-03-19 07:32] VITALS: BP 143/75
--- NOTE | 2019-03-19 07:56 | NUR ---
progress pt alert and oriented slept most of night was incontinent of urine and was upset stating she was yelling and screaming for help and no one came. no yelling or screaming noted by this RN or any other staff member on the unit, pt given bed bath and linens changed. reoriented to call light and poc.
--- NOTE | 2019-03-19 13:51 | NUR ---
CARE TEAM INDICATED THAT PT IS NO LONGER A BUNDLE PT. CM HAD SPOKEN WITH PT AND DTR AT BEDSIDE ABOUT POSSIBLE ACUTE CARE STAY. THEY WERE RECEPTIVE TO 5N CONSULT FOR POSSIBLE ADMISSION. CM NOTIFIED 5N LIAISON LUBRICATOR GRANULATOR TO SEE. CM TO FOLLOW INDICATED WITH DC PLANNING.
[2019-03-19 15:47] VITALS: BP 134/80
--- NOTE | 2019-03-19 16:45 | NUR ---
CALLED DTR LORENZO AND DISCUSSED D/C GOALS FOR [facility]. PER LORENZO, Pt USUALLY LIVES WITH HER BROTHER CASSANDRA WHO WORKS FROM 3 PM TO MIDNIGHT. 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 DTR LORENZO WAS AGAIN AGREEABLE WITH ULTIMATE GOAL TO D/C HOME AFTER ACUTE REHAB STAY NO MATTER WHAT FUNCTIONAL LEVEL Pt HAS OR HAS NOT ACHIEVED. LORENZO READY TO CARE FOR Pt UPON D/C REGARDLESS OF Pt'S FUNCTIONAL CAPABILITIES. CAN ADMIT Pt TO [facility] OVER THE WEEKEND IF READY FOR D/C.
[2019-03-19] MEDS ORDERED: AMOXIL 875 MG875 M1 PO (17:41)
--- NOTE | 2019-03-19 18:33 | NUR ---
Assumed patient care at 0715. Patient is alert and oriented times three; much improved in the last few days. Patient continues with a poor appetite. She needs assistance times two with transfers. She uses the commode with assist times two. Her children have been taking turns at bedside. Vital signs have been stable. POC followed. Will report to on-coming nurse. Patient to Discharge to Rehab Unit upstairs tomorrow.
--- NOTE | 2019-03-20 08:03 | NUR ---
progress pt a/o x 4 more pleasant today using call light appropriate voiding per toliet no episodes of incontinence noted denies pain or need for pain meds tolerating diet up with sba
[2019-03-20 08:18] VITALS: BP 148/89
--- NOTE | 2019-03-20 14:17 | NUR ---
ASSUMED PT CARE AT 7AM.ASSESSMENT COMPLETED.VSS.PT IN BED RESTING WITHOUT ANY C/O.AM MEDS GIVEN WITH PUDDING AFTER CRUSHING BIG PILLS BUT PT ABLE TO TAKE SMAAL ONES WITH WATER.DR LIZAMA HERE,DC ORDER NOTED.RECEIVED CALL FROM ADMISSION LIASON FROM INPT REHAB THAT PT WILL BE DC FROM MED SURG UNIT AND ADMITTED TO REHAB.DC SUMMARY COMPILE AND REPORT OFF TO DEEPIKA MILES. AT 1420,PT DC TO INPT REHAB PER WITH ALL HER PERSONAL BELONGINGS ACCOMPANIED BY PT SON AND AUTOMATIC DOOR MECHANIC.
[2019-03-22 17:06] LABS: URINE PROTEIN (MG/DL) < 4.0 mg/dL (Not Estab.)
[2019-03-24 16:06] LABS: GLOBULIN TOTAL 2.2 g/dL (2.2-3.9); M-SPIKE Not Observed g/dL (Not Observed)
== END 2019-03-20 14:15 | DRG 640 ==
LOC: 4W
PROVIDERS: Internal Medicine; Nurse Practitioner; ADMIT Hospitalist
DX: E83.52 Hypercalcemia (principal); E43 Unspecified severe protein-calorie malnutrition; G93.41 Metabolic encephalopathy; N39.0 Urinary tract infection, site not specified; E87.0 Hyperosmolality and hypernatremia; F03.91 Unspecified dementia, unspecified severity, with behavioral disturbance; E03.9 Hypothyroidism, unspecified; F31.9 Bipolar disorder, unspecified; E87.6 Hypokalemia; E78.5 Hyperlipidemia, unspecified; G40.909 Epilepsy, unspecified, not intractable, without status epilepticus; R13.10 Dysphagia, unspecified; K59.00 Constipation, unspecified; R62.7 Adult failure to thrive; E53.8 Deficiency of other specified B group vitamins; Z66 Do not resuscitate; K21.9 Gastro-esophageal reflux disease without esophagitis; E83.42 Hypomagnesemia; I12.9 Hypertensive chronic kidney disease with stage 1 through stage 4 chronic kidney disease, or unspecified chronic kidney disease; N18.3 Chronic kidney disease, stage 3 (moderate); Z81.1 Family history of alcohol abuse and dependence; Z88.8 Allergy status to other drugs, medicaments and biological substances; Z86.73 Personal history of transient ischemic attack (TIA), and cerebral infarction without residual deficits; Z79.82 Long term (current) use of aspirin; Z79.899 Other long term (current) drug therapy; Z68.23 Body mass index [BMI] 23.0-23.9, adult
CPT/HCPCS: 10047

== ENCOUNTER 2019-03-20 11:17 | Inpatient (IN) | payer OTHER ==
[~2019-03-20] VITALS: Ht 160 cm; Wt 64.4 kg
[~2019-03-20 11:17] MED LIST changes: +ACETAMINOPHEN650 M5 PO; +AMOXIL 875 MG875 M1 PO; +CEPACOL SORE T1 EAC7 PO; +DULCOLAX STOOL100 M1 PO; +HALDOL5 MG/1 ML IM; +HALOPERIDOL 2 MG2 M1 PO; +NF PO; +ONDANSETRON HCL4 M3 PO; +SENOKOT8.6 MG PO; +[UNRECOGNIZED DRUG - OTHER] TOP
[2019-03-20 14:35] VITALS: BP 139/72
--- NOTE | 2019-03-20 15:53 | NUR ---
PT ARRIVED AT 1415 FROM 4W. ORIENTED TO PERSON, PLACE AND SITUATION. FORGETFUL. DENIES PAIN. VITALS REMAIN STABLE. PIV ON RIGHT HAND REMAINS PATENT, DRESSING NEEDS FASTENING. C/O NAUSEA/ ABDOMINAL DISCOMFORT. PT TRANSFERED TO BED WITH MIN ASSIST, GB AND WALKER AND TOLERATED WELL. HOURLY ROUNDING. ROOM NEAR NURSE'S DESK. SON AT THE BEDSIDE. FALL PRECAUTIONS IN PLACE
[2019-03-20 19:46] VITALS: BP 135/60
--- NOTE | 2019-03-21 01:25 | NUR ---
PT TRANSFERRING TO BEDSIDE COMMODE WITH STANDBY ASSIST AND IS TOLERATING WELL. DENIES PAIN. RESTING COMFORTABLY. NO NEEDS VOICED. CALL LIGHT WITHIN REACH. WILL CONTINUE TO PROVIDE FREQUENT OBSERVATION.
[2019-03-21 05:52] LABS: HEMATOCRIT 30.5 % (37.0-47.0); MCH 30.3 pg (26.0-34.0); MCHC 32.7 g/dL (28.0-37.0); MCV 92.7 fL (80.0-100.0); RBC 3.29 mil/uL (4.20-5.00); WBC 6.6 thou/uL (4.0-11.0)
[2019-03-21 06:19] LABS: CREATININE 0.9 mg/dL (0.6-1.0)
[2019-03-21 10:00] VITALS: BP 136/74
--- NOTE | 2019-03-21 11:47 | NUR ---
PATIENT STATES UPSET WITH CRUSHED MEDICATIONS - NAUSEA WITH HEEL DIPPER MEDS - GIVEN ZOFRAN EARLIER. UP AND OUT OF BED - TRANSFERS USING WALKER WITH STAFF ASSIST - PATIENT WORKING WITH PT THIS MORNING. PATIENT STATES NO PAIN DISCOMFORT - SKIN INTACT AND APPETITE GOOD. HEART RATE STEADY WHEN AUSCULTATED AND LUNGS CLEAR - HAD BOWEL MOVEMENT THIS MORNING. MEDICATION COMPLIANT. ALERT AND ORIENTED X 4 -
--- NOTE | 2019-03-21 12:17 | HC ---
[facility] [place] [address] CONSULTATION Name: AUGUSTOMARY KATELORENZO Jessica Room #: 513-P [facility] IN M.R.#: [id number] Admission: 03/20/19 Attend Phys: Alexander Valentin MD Discharge: Date of : 41 Report #: [id number] THIS REPORT FOR: //name// CC: Alexander Clark DATE OF SERVICE: 03/21/2019 ENDOCRINE CONSULTATION. CONSULTING PHYSICIAN: Dr. Taylor REASON FOR CONSULTATION: Hypercalcemia. HISTORY OF PRESENT ILLNESS: This is a 73-year-old female patient whom I first saw while she was at the [facility] for the issue of hypercalcemia. On my initial evaluation, the patient had severe hypercalcemia reaching up to 12.1 mg/dL. Subsequently, she was aggressively managed with ongoing intravenous fluid support in addition to the use of Zometa 4 mg IV infusion times once. From that point on, the patient had progressively decline in her calcium levels to where they normalized and she was feeling progressively better from the standpoint of alertness, improving appetite, and improving energy levels overall. Also, while the patient had gone through this course, she had recurrent issues with hypokalemia, prompting several bouts of potassium replacement. Currently, she denies muscle cramps, weakness, nausea, vomiting. The patient is also known to have hypothyroidism and was maintained on a stable dose of levothyroxine 88 mcg daily, which was raised to 100 mcg daily nearly 2 weeks ago. The patient has not had any specific side effects or intolerance to this change so far. The patient is known to have hyperlipidemia and is maintained on atorvastatin therapy as well as hypertension and is maintained on losartan and amlodipine therapy. REVIEW OF SYSTEMS: CONSTITUTIONAL: Fatigue, tiredness, but improving. Appetite is improving. No major changes in body weight. However, she lost about 20 pounds over the few months preceding admission. HEENT: Negative for sinus pain, sinus congestion, ear drainage. PULMONARY: Occasional shortness of breath and cough, but no hemoptysis. CARDIAC: No chest pain, palpitations, syncope, or presyncope. GASTROINTESTINAL: Occasional nausea, no vomiting. No abdominal pain. No hematemesis. [facility] [address] [place] [address] CONSULTATION Name: LORENZO RAMIREZ Jessica Room #: 513-P [facility] IN ..#: [id number] Admission: 03/20/19 Attend Phys: lAexander Valentin MD Discharge: Date of : 43 Report #: [id number] NEUROLOGY: Occasional lightheadedness, dizziness, but not loss of consciousness, seizure activity or severe recurrent headaches. PSYCHIATRIC: The patient has baseline issues with major affective disorders, bipolar disorder and dementia. SKIN: Negative for rash, ulceration or other major changes. Otherwise, review of systems noncontributory other than those mentioned in HPI. PAST MEDICAL HISTORY: 1. Hypercalcemia as noted in HPI. 2. Hypothyroidism. 3. Hyperlipidemia. 4. Hypertension. 5. Hypokalemia. 6. Seizure disorder. 7. Bipolar disorder. 8. Dementia. 9. History of lacunar infarct. 10. Vitamin B12 deficiency. ACTIVE MEDICATIONS: Include aspirin 81 mg daily, cyanocobalamin 100 mcg daily, citalopram 50 mg daily, losartan 50 mg daily, metoprolol 25 mg daily, levothyroxine 100 mcg daily, pantoprazole 40 mg daily, atorvastatin 80 mg at bedtime, Colace 100 mg daily, albuterol sulfate 2 puffs q. 6 hours p.r.n. ALLERGIES: LISINOPRIL. FAMILY HISTORY: Noncontributory. SOCIAL HISTORY: The patient lives with her son. She denies active use of tobacco, alcohol or illicit drugs. PHYSICAL EXAMINATION: GENERAL: Pleasant female patient who is not in apparent distress. She is sitting comfortably in her chair. VITAL SIGNS: Blood pressure is 135/60 mmHg, heart rate is 66 beats per minute, respirations 16 per minute, temperature 36.8 degrees. CONSTITUTIONAL: The patient appears comfortable, not in apparent distress. HEENT: Anicteric sclerae. Intact extraocular motions. NECK: Supple, without JVD, carotid bruits or lymphadenopathy. I do not appreciate thyromegaly. CHEST: Noted for moderate entry bilaterally with scattered rales and rhonchi, no crackles. No active wheezing. HEART: Regular rate and rhythm without murmurs or gallops. ABDOMEN: Soft and lax without tenderness or organomegaly. She has active bowel sounds. EXTREMITIES: Lower extremity exam is noted for trace ankle edema, skin breaks, [address] [address] CONSULTATION Name: LORENZO RAMIREZ Room #: 513-P [facility] IN M.R.#: [id number] Admission: 03/20/19 Attend Phys: Alexander Valentin MD Discharge: Date of : 43 Report #: [id number] ulcerations. Pedal pulses are appreciated. NEUROLOGIC: Awake, alert and oriented to time, place and person. The remainder of her examination is nonfocal. PSYCHIATRIC: Normal mood and affect, interactive, pleasant and answers my questions appropriately. LABORATORY DATA: Calcium today is at 8.0, but with an albumin of 2.0. This corrects to 9.6 mg/dL; sodium 136; potassium 4.0; chloride 106; CO2 of 23; anion gap 7; BUN 6; creatinine 0.9; glucose 97; AST 13; total bilirubin 0.2. Phosphorus 1.7, magnesium 1.4, total protein 4.8, ALT 16. EGFR 61, this has improved from a baseline of 40. Serum protein electrophoresis, urine protein electrophoresis are still pending. White blood count is 6.6, hemoglobin 10, hematocrit 30.5, platelets 195. Gardners 1.6 on 03/12/2019 that is. TSH 5.07. Vitamin B12 1314, random cortisol 11.2, calcium at that site was 12.1. Intact PTH 22. PTH related peptide is negative at less than 2. Angiotensin converting enzyme is negative at 22. Vitamin D is 36.9. ASSESSMENT AND PLAN: 1. Hypercalcemia. As noted above, the patient was found to have severe hypercalcemia that is symptomatic about 2 weeks ago, she responded well to supportive measures with intravenous fluids and Zometa and had normalized her calcium levels over the past few days. Her most recent calcium is about 9.6 mg/dL when corrected for her low albumin. Importantly, the patient's PTH level was low at 22, thus making primary hyperparathyroidism an unlikely a reason for her hypercalcemia. As a secondary workup for hypercalcemia was launched and so far had yielded a negative a PTH RP, angiotensin converting enzyme, but still has not resulted yet on the screen for multiple myeloma. I am awaiting these results. Also, her screening for adrenal insufficiency had ruled out that possibility. Given the patient's stability, which I suspect would go on for at least several weeks given the administration of Zometa, our next step is primarily dictated by the results of her workup. 2. Hypokalemia. This had been resistant and recurrent, but has stabilized over the past 2 days and now she has a normal kalemia at 4.0. I would monitor this as needed and address as necessary. 3. Hypertension. The patient's blood pressure control is adequate. She is to continue the current regimen. 4. Hypothyroidism. The patient has a longstanding history of hypothyroidism, which was maintained on a stable dose of levothyroxine of 88 mcg daily. However, her TSH 2 weeks ago was slightly above the desired range, which prompted an increase in her dose to 100 mcg daily. I would keep the current dosage and plan to discharge the patient on the same. Follow up thyroid function studies will be needed in close to 2 months from now to ensure her responsiveness to this change. [address] [address] CONSULTATION Name: LORENZO RAMIREZ Room #: 513-P [facility] IN M.R.#: [id number] Admission: 03/20/19 Attend Phys: Alexander Valentin MD Discharge: Date of : 43 Report #: [id number] I certainly appreciate this consultation by Dr. Taylor. <ELECTRONICALLY SIGNED> By: Bonita Galicia MD 03/21/19 1217 1135 [facility] Bonita Galicia MD /nt
[2019-03-21 19:00] VITALS: BP 124/72
--- NOTE | 2019-03-21 23:45 | NUR ---
PT ASSESSMENT DONE AND VSS. MEDS GIVEN AND WELL TOLERATED. FALL PRECAUTIONS IN PLACE. HOURLY ROUNDING. CALL LIGHT IN REACH. SLEEPING WELL. WILL CONTINUE TO MONITOR.
[2019-03-22 08:19] VITALS: BP 152/82
--- NOTE | 2019-03-22 10:45 | NUR ---
chart review, pt up in chair, a & o x 3, pleasatn, forgetfulness and able to make her needs know " ok then my stomach hurt just ask my daughter she make my decision, just need to rest today with my stomach."/rosa. per chart pt lives with barrie perez, 10 steps to enter with stairs inside house as well. was independent at home, yet has not walked since feb 19, has [facility]bh stay in past. manage own medication"/chart. letting pt rest and will cont following as needed for dc needs.
--- NOTE | 2019-03-22 11:13 | NUR ---
ASSUMED PT CARE AT 0700. REPORTS SLEEP FAIR LAST NIGHT. ORIENTED TO PERSON, PLACE AND SITUATION. FORGETFUL. DUE TO MILD DEMENTIA. C/O NAUSEA, ZOFRAN GIVEN ORDERED. HAD SMALL BM. TRANSFERED TO BED WITH MIN ASSIST, GB AND WALKER AND TOLERATED WELL. C/O FEEL WEAK THIS AM. SHE REFUSED TO EAT THIS AM. BUT FINALLY ATE 50% OF HER BREAKFAST. ST WORKED WITH PT. B/P 152/82, B/P MEDICATIONS GIVEN. MEDS TOOK WHOLE WITH THIN AND CRUSHED BIG ONE WITH PUDDING. PT TOLERATED WELL. OFFERED SUPPORTIVE CARE AND SUPPORT. PT IS WORKING WELL WITH THIS DIE ATTACHER AND WILL TRY HER BEST TO PARTICIPATE WITH THERAPY TODAY. HOURLY ROUNDING. ROOM NEAR NURSE'S DESK. FALL PRECAUTIONS IN PLACE, USES CALL LIGHT APPROPRIATELY. SEIZURE PRECAUTION IN PLACE. KEPPRA GIVEN. CONTINUE TO BE ON AMOXICILLIN WITHOUT ADVERSE REACTION.WILL CONTINUE TO MONITOR.
[2019-03-22 19:32] VITALS: BP 137/79
--- NOTE | 2019-03-23 00:29 | NUR ---
PT ALERT AND ORIENTED X 2, FORGETFUL. UP TO BSC WITH ASSIST X 1. 1 LOOSE STOOL SO FAR TONIGHT. PT TOOK HS MEDS CRUSHED IN PUDDING WITHOUT DIFFICULTY. PT TOOK 2300 ZOFRAN WHOLE WITH WATER WITHOUT DIFFICULTY. PT CONTINUES TO C/O NAUSEA. NO EMESIS. PT DENIES PAIN OR DISCOMFORT. BED ALARM ON FOR SAFETY. PT APPEARS TO BE SLEEPING ON HOURLY ROUNDS.
[2019-03-23 10:32] VITALS: BP 125/71
--- NOTE | 2019-03-23 11:29 | NUR ---
ASSUMED PT CARE AT 0700. REPORTS SLEEP FAIR LAST NIGHT. HAD SEVERAL LIQUID BM LAST NIGHT. ORIENTED TO PERSON, PLACE AND SITUATION. FORGETFUL. DUE TO MILD DEMENTIA. PT STILL HAS NAUSEA BUT FEELS BETTER. ZOFRAN GIVEN ORDERED. MIRALAX GIVEN SCHEDULE, BS PRESENCE. TRANSFERED TO BED WITH MIN ASSIST, GB AND WALKER AND TOLERATED WELL. MEDICATIONS GIVEN ORDERED. MEDS TOOK WHOLE WITH THIN AND CRUSHED BIG ONE WITH PUDDING. PT TOLERATED WELL. OFFERED SUPPORTIVE CARE AND SUPPORT. DISCUSSED ABOUT CARE PLANS AND ENCOURAGED PT TO PARTICIPATE WITH THERAPY TOWARD DISCHARGE GOALS AND GO TO EAT AT DINNING ROOM FOR LUNCH AND DINNER. HOURLY ROUNDING. ROOM NEAR NURSE'S DESK. FALL PRECAUTIONS IN PLACE, USES CALL LIGHT APPROPRIATELY. SEIZURE PRECAUTION IN PLACE. KEPPRA GIVEN. CONTINUE TO BE ON AMOXICILLIN FOR UTI WITHOUT ADVERSE REACTION. DENIES BURNING OR URGENCY OF URINATION. PT HAS BEEN PARTICIPATE WITH THERAPY AND REST IN BED BETWEEN THERAPY.WILL CONTINUE TO MONITOR.
--- NOTE | 2019-03-23 13:34 | NUR ---
team meeting, recommendation: 27th with hh (pt, ot, st, nursing,), will need fww, family to assist with medication. frequent check at home.
[2019-03-23 19:15] VITALS: BP 144/72
--- NOTE | 2019-03-23 23:47 | NUR ---
PT ASSESSMENT DONE AND VSS. MEDS CRUSHED AND WELL TOLERATED. FALL PRECAUTIONS IN PLACE. SLEEPING WELL. HOURLY ROUNDING. CALL LIGHT IN REACH. WILL CONTINUE TO MONITOR.
[2019-03-24 05:32] LABS: ALBUMIN 2.8 g/dL (3.4-5.0); CALCIUM 8.3 mg/dL (8.5-10.1); MAGNESIUM 2.2 mg/dL (1.8-2.4); PHOSPHORUS 2.3 mg/dL (2.5-4.9); POTASSIUM 4.3 mmol/L (3.5-5.1)
[2019-03-24 05:38] LABS: ABSOLUTE NEUTROPHILS 4.2 thou/uL (1.4-8.2); BASOPHILS 0.5 % (0.0-2.0); EOSINOPHILS 13.4 % (0.0-3.0); HEMATOCRIT 31.6 % (37.0-47.0); HEMOGLOBIN 10.5 gm/dL (12.0-15.0); LYMPHOCYTES 17.4 % (24.0-44.0); MCH 31.1 pg (26.0-34.0); MCHC 33.3 g/dL (28.0-37.0); MCV 93.3 fL (80.0-100.0); MONOCYTES 5.9 % (1.0-8.0); PLATELET COUNT 224 thou/uL (150-400); POLYS 62.8 % (36.0-66.0); RBC 3.39 mil/uL (4.20-5.00); RDW 14.2 % (10.5-14.5); WBC 6.6 thou/uL (4.0-11.0)
[2019-03-24 10:11] VITALS: BP 107/56
--- NOTE | 2019-03-24 10:19 | NUR ---
cm called daughter maxwell and son chris, left message requested call back to discuss dcp.
--- NOTE | 2019-03-24 17:47 | NUR ---
PT ALERT AND ORIENTED TIMES FOUR WITH PERIODS OF CONFUSION. VSS. PT C/O HEADACHE PRN PAIN MEDICATIONS GIEVN WITH GOOD RELEIF. PT TOLERATES MEDS AND MEALS. PT WORKED WELL WITH PT/OT TODAY. PT PROGRESSING TOWRADS POC GOALS.
[2019-03-24 19:30] VITALS: BP 136/75
--- NOTE | 2019-03-24 22:01 | HC ---
[facility] [place] [address] CONSULTATION Name: LORENZO RAMIREZ Jessica Room #: 513-P AD[facility] IN M.R.#: [id number] Admission: 03/20/19 Attend Phys: Alexander Valentin MD Discharge: Date of : 43 Report #: [id number] THIS REPORT FOR: //name// CC: Alexander Villanuevaleela Amber DATE OF SERVICE: 03/20/2019 PRIMARY ATTENDING: Dr. Valentin. CONSULTING PSYCHIATRIST: Davis Galeana DO REASON FOR CONSULTATION: Reevaluation for the patient's candidacy for mood stabilization, specifically use of lithium carbonate. SOURCES OF INFORMATION: Chart review, interview with the patient and my past experience with the patient on the [facility]. CHIEF COMPLAINT: "I told I was going to be on lithium." HISTORY OF PRESENT ILLNESS: This is a 73-year-old female that first made my acquaintance earlier in March. She was a transfer from [facility] due to psychiatric concerns. The patient had a precipitous increase in her calcium to the critical range. This did not improve with brief periods of IV hydration on the [facility]. Therefore, she was transferred medically. The patient has history of bipolar disorder. There is a concern for major neurocognitive disorder. The patient had been for several weeks at [facility] with little progress even after being sent from [facility] to the [facility] in the [facility]. The patient's lithium was actually discontinued before she left my unit due to worsening kidney function. I spoke directly with the patient today after consulting Dr. Valentin and Karrie. The patient is still much of the mindset that it is lithium or nothing. I explained to her that there were several considerations the fact that she became so dehydrated and so pronounced hypercalcemia, overall lithium would be relative contraindication to resuming it. In addition, when I met with her, I was not aware of the outcome of the serum protein electrophoresis which would include multiple myeloma workup, it is negative, which is good on the one hand, but I would agree with Dr. Reese that by default the debility, immobility, dehydration was a likely etiology of her problems and side effects from lithium can become life threatening if someone is particularly predisposed to this, so I instructed the patient that resumption of lithium while she is in the rehab hospitalization would not be in her best interests. In addition, I have discussed with the patient that she is expected to be discharged right before Thanksgiving so the next week or so, we need to maximize her ability to function 3 hours a day of therapies and if we do not need to start other medications, her rehabilitation is going to be for the [address] [place] [address] CONSULTATION Name: LORENZO RAMIREZ Room #: 513-P [facility] IN M.R.#: [id number] Admission: 03/20/19 Attend Phys: Alexander Valentin MD Discharge: Date of : 43 Report #: [id number] better. Certainly, there are other mood stabilizers and it would be dysfunctional thinking to say that she could only be on lithium the rest of her life. Additional information from background sources is as follows: PAST MEDICAL HISTORY: Includes seizure disorder, hypertension, bipolar disorder. MEDICATIONS: Will be reviewed. ALLERGIES: To LISINOPRIL. The patient has a paternal side history of alcoholism, smoking is minimal. She denied nausea, vomiting, fever, diarrhea or chills. Reported some short-term memory difficulties. Otherwise, brief 10-point review of systems was negative. SOCIAL HISTORY: She lives at home with son. Requires assist for transfers but prior to a month ago was apparently ambulatory and independent with basic ADLs. CURRENT MEDICATIONS: On the rehabilitation unit Protonix 40 mg mg p.o. b.i.d., melatonin 10 mg p.o. at bedtime p.r.n., multivitamin p.o. daily, metoprolol tartrate 25 mg p.o. daily, losartan 50 mg p.o. daily, Lexapro 15 mg p.o. daily, cyanocobalamin 100 mcg p.o. daily, aspirin 81 mg p.o. daily, levothyroxine 100 mcg p.o. daily, senna 8.6 mg p.o. b.i.d., Keppra 500 mg p.o. b.i.d., docusate sodium 100 mg p.o. at bedtime, atorvastatin 80 mg p.o. at bedtime, amoxicillin 875 mg p.o. b.i.d., Zofran 4 mg q.6 p.o. PHYSICAL EXAMINATION: VITAL SIGNS: Today temperature 36.7, pulse 65, respirations 20, BP 144/72, O2 sat 98%. MUSCULOSKELETAL: Gait not tested, seated at bedside. She did have Entero faecalis positive UTI and currently being treated with Augmentin. Most recent laboratories from 03/21/2019 hemoglobin 10.0, hematocrit 30.5, white count 6.6, platelet count 195. Sodium 136, potassium 4.0, chloride 106, bicarbonate 23, anion gap 7, BUN 6, creatinine 0.9, estimated GFR 61, glucose 97, calcium 8.0. Of note, the patient is hypoalbuminemic, so her calcium is actually closer to 9. MENTAL STATUS EXAMINATION: Well-developed, well-nourished female. Attention fair. Concentration fair. Speech is normal in rate, volume and tone. Thought process is linear and goal oriented. Thought content focused on discharge, focused on improving herself, focusing on concerns for lithium therapy. No psychomotor agitation. No psychomotor retardation. Denied SI or HI. Denied hopelessness, helplessness. Denied homicidal intent or plan. Memory not formally tested. Insight fair. Judgment fair. Fund of knowledge at least average. [facility] [address] [place] [address] CONSULTATION Name: LORENZO RAMIREZ Room #: 513-P [facility] IN [facility].#: [id number] Admission: 03/20/19 Attend Phys: Alexander Valentin MD Discharge: Date of : 41 Report #: [id number] DIAGNOSES: Delirium secondary to general medical condition, namely dehydration, hypercalcemia, largely resolved. Bipolar disorder by history, unspecified cognitive impairment. RECOMMENDATIONS: As stated in the subjective given the patient's severe complications of dehydration, debility, deconditioning I do not think she is a good candidate for lithium therapy at this point. Given that she is euthymic, participating in therapies well, I would not change her psychotropic medication the rest of the rehabilitation admission. The patient will need close psychiatric followup. Certainly mood stabilizers can be reinstituted. Considerations can include non-lithium therapy including Trileptal and Tegretol, Depakote, lamotrigine, Neurontin as examples. I will sign off at this time, but we will be available should any complications develop during her rehabilitation admission. My findings were discussed with Dr. Valentin and Karrie. I did tell the patient to try to reach her daughter in the next day or so. The daughter Aura is a sorting machine attendant and so I leave a number for her to page me through. Time spent on this consultation was approximately 45 minutes. addendum: got call back from daughter Aura on pm of 03/24/2019. I discussed reasoning for no lithium and no moddstabilizaers at this time. Aura discussed understanding. I asked Rehab SW to arrange psychaitrict OP appoitnment for patient 2-2.5 weeks after discharge. Supportive Psychotherapy recommended if patient agrees as well. <ELECTRONICALLY SIGNED> By: Davis Galeana DO 03/24/19 2201 [id number] Davis Galeana DO /nt
--- NOTE | 2019-03-25 01:28 | NUR ---
PT ALERT AND ORIENTED X 4. AMB TO BR WITH WALKER AND ASSIST X 1 WITHOUT DIFFICULTY. PT TOOK HS MEDS CRUSHED IN APPLESAUCE. PT C/O HEADACHE. TYLENOL GIVEN ORDERED AND PT SLEEPING UPON REASSESSMENT. PT DENIES NAUSEA SO FAR TONIGHT. BED ALARM ON FOR SAFETY. PT APPEARS TO BE SLEEPING ON HOURLY ROUNDS.
[2019-03-25 07:51] VITALS: BP 143/75
--- NOTE | 2019-03-25 12:40 | NUR ---
ASSUMED CARE THIS MORNING AT 0700. PT. IN HER ROOM. SHE TOOK ER MORNING MEDICATIONS WITHOUT PROBLEMS NOTED. SHE KEPT REPEATING, "YOU DID REALLY WELL, NOT TOO MUCH, NOT TOO LITTLE." WALKED WITH PT. TO THE BATHROOM, WALKED BACK TO THE CHAIR BY CLINICAL LAB SCIENTIST. IN THE DINING ROOM FOR MEALS, BACK TO HER ROOM BETWEEN ACTIVITIES.
--- NOTE | 2019-03-25 13:33 | NUR ---
daughter maxwell called back rt dcp " i would like her to stay with my, live in [place], brother lives in [facility] [place] [facility] and work in evening. his home all ranch style but at my house 2nd floor for bedrooms. cm education on have temp bedroom on main level until safe to do stair. hh needs, assistance with bills and pills. frequent check " i can help with medication and already do the bills, any home health that would go to both passes will be good in case stays with brother some. cm provided senior blue book and hh list choice, left in pt room for daughter when visit. also passed on information from md martin.
[2019-03-25 20:36] VITALS: BP 152/83
--- NOTE | 2019-03-26 00:03 | NUR ---
PT ALERT AND ORIENTED X 4, FORGETFUL. AMB TO BR WITH WALKER AND ASSIST X 1 WITHOUT DIFFICULTY. PT DENIES PAIN OR DISCOMFORT. PT CALLS OUT FREQUENTLY FOR VARIOUS THINGS. BED ALARM ON FOR SAFETY. PT CHECKED ON HOURLY ROUNDS.
[2019-03-26 09:26] VITALS: BP 158/83
--- NOTE | 2019-03-26 09:50 | NUR ---
PATIENT STATED THAT SHE IS NOT COMFORTABLE WITH SIGNING ANY OF HER CONSENTS, AND REQUESTED THAT WE ASK HER DAUGHTER TO SIGN THEM WHEN SHE COMES IN LATER TODAY. CONSENTS WERE GIVEN TO JD POE, WHO STATED PLAN TO REVIEW WITH DTR WHEN SHE ARRIVES TO THE UNIT TODAY.
--- NOTE | 2019-03-26 11:40 | NUR ---
phone call from daughter maxwell who stated " will need bedside commode, and wheel chair when she has appointment to take her in."maxwell . education on where family can get transport chair and bedside commode. education that still looking for hh that goes [facility] to [facility] not go to [facility]. " oh i live in [place] no [facility] there is like 30miles difference. she will be staying with me in [place]. [facility] referral will be fine. referral sent to [facility]. will cont following as needed for dc needs.
--- NOTE | 2019-03-26 15:05 | NUR ---
ASSUMED CARES AT 0700. PT ORIENTED TO PERSON, PLACE AND SITUATION. FORGETFUL AND AT TIMES CONFUSED. VERY SLEEPY TODAY, SLEEPING IN BTN THERAPIES. VITALS REMAIN STABLE. PT C/O HEADACHE. REMAINS ON SEIZURE PRECAUTIONS. UP WITH 1 MIN ASSIST, GB AND WALKER AND TOLERATED WELL. FREQUENT VISUAL CHECKS. CALL LIGHT WITHIN REACH. FALL PRECAUTION IN PLACE
[2019-03-26 20:08] VITALS: BP 151/85
--- NOTE | 2019-03-26 22:58 | NUR ---
PT ASSESSMENT DONE AND VSS. ENCOURAGED HER TO TAKE MIRALAX TO HAVE LARGER BM THAT MAY BE CAUSING THE NAUSEA. LARGER MEDS CRUSHED. TOOK SMALLER PILLS WHOLE WITH MIRALAX/WATER. STATED SHE WASN'T NAUSEATED THIS PM. MEDS WELL TOLERATED. FALL PRECAUTIONS IN PLACE. UP TO BR WITH ASSIST. SLEEPING WELL. HOURLY ROUNDING. CALL LIGHT IN REACH. WILL CONTINUE TO MONITOR.
[2019-03-27 07:47] VITALS: BP 136/85
--- NOTE | 2019-03-27 12:14 | NUR ---
ASSUMED CARES AT 0700. REPORTS SLEPT WELL LAST NIGHT. PT ORIENTED TO PERSON, PLACE AND SITUATION. FORGETFUL AND AT TIMES CONFUSED. REFUSE TO GET UP TO DINNING ROOM FOR MEALS. VITALS REMAIN STABLE. C/O NAUSEA, PRN ZOFRAN GIVEN. REMAINS ON SEIZURE PRECAUTIONS. UP WITH 1 MIN ASSIST, GB AND WALKER AND TOLERATED WELL. OFFERED SUPPORTIVE CARE. ENCOURAGED PT TO GET UP AND VOICE HER NEEDS. PARTICIPATES WITH THERAPY BUT LIKE TO REST IN BED WHEN SHE IS NOT IN THERAPY.FREQUENT VISUAL CHECKS. CALL LIGHT WITHIN REACH. FALL PRECAUTION IN PLACE. WILL CONTINUE TO MONTIOR.
[2019-03-27 20:02] VITALS: BP 149/82
--- NOTE | 2019-03-28 04:45 | NUR ---
ASSESSMENT: PT REMAIN ALERT AND ORIENT TIMES THREE. UP WITH SBA TO BR. SON WAS AT THE BEDSIDE EALIER DURING THE SHIFT. NO FURTHER COMPLAINTS. SLEPT WELL DURING THE NIGHT. DENIES PAINB, SOB, AND N/V. VSS, AFEBTILE. SLOW PROGRESS TOWARDS DC GOALS, WILL CONTINUE TO MONITORL.
[2019-03-28 08:00] VITALS: BP 129/73
[2019-03-28 19:47] VITALS: BP 142/77
--- NOTE | 2019-03-28 23:42 | NUR ---
PT ASSESSMENT DONE AND VSS. MEDS GIVEN AND VSS. FALL PRECAUTIONS IN PLACE. SLEEPING WELL. HOURLY ROUNDING. CALL LIGHT IN REACH. WILL CONTINUE TO MONITOR.
[2019-03-29 08:00] VITALS: BP 138/70
--- NOTE | 2019-03-29 14:43 | NUR ---
ASSUMED CARES AT 0700. NOTED ORDER FROM DR. ULLOA TO CALL DR. ARGUELLES AND LET DOCTOR KNOW PT WILL BE DISCHARGE ON FRI. CALLED AND DR. ARGUELLES SAID HE WILL COME TO SEE PT LATER TODAY. PT ALERT AND ORIENTED X4, FORGETFUL AT TIME. REFUSE TO GET UP TO DINNING ROOM FOR MEALS. VITALS REMAIN STABLE. DENIES PAIN, CONSTIPATION. NAUSEA. REMAINS ON SEIZURE PRECAUTIONS. UP WITH 1 MIN ASSIST, GB AND WALKER AND TOLERATED WELL. OFFERED SUPPORTIVE CARE. ENCOURAGED PT TO GET UP AND VOICE HER NEEDS. PARTICIPATES WITH THERAPY BUT LIKE TO REST IN BED WHEN SHE IS NOT IN THERAPY.FREQUENT VISUAL CHECKS. CALL LIGHT WITHIN REACH. FALL PRECAUTION IN PLACE. WILL CONTINUE TO MONITOR.
[2019-03-29 19:35] VITALS: BP 151/73
--- NOTE | 2019-03-30 02:33 | NUR ---
PT ALERT AND ORIENTED X 4. RAMBLES ON AT TIMES AND SOMETIMES DOESN'T MAKE SENSE. AMB TO BR WITH WALKER AND ASSIST X 1 FREQUENTLY. PT TAKES MEDS CRUSHED IN APPLESAUCE WITHOUT DIFFICULTY. MELATONIN GIVEN AT HS FOR SLEEP. BED ALARM ON FOR SAFETY. PT SLEEPING ON HOURLY ROUMDS.
[2019-03-30 07:18] LABS: ABSOLUTE NEUTROPHILS 2.7 thou/uL (1.4-8.2); BASOPHILS 1.2 % (0.0-2.0); EOSINOPHILS 4.9 % (0.0-3.0); HEMATOCRIT 33.1 % (37.0-47.0); HEMOGLOBIN 10.7 gm/dL (12.0-15.0); LYMPHOCYTES 24.8 % (24.0-44.0); MCH 30.5 pg (26.0-34.0); MCHC 32.5 g/dL (28.0-37.0); MCV 93.8 fL (80.0-100.0); MONOCYTES 10.8 % (1.0-8.0); PLATELET COUNT 231 thou/uL (150-400); POLYS 58.3 % (36.0-66.0); RBC 3.53 mil/uL (4.20-5.00); WBC 4.7 thou/uL (4.0-11.0)
[2019-03-30 07:36] LABS: PHOSPHORUS 4.3 mg/dL (2.5-4.9); POTASSIUM 4.1 mmol/L (3.5-5.1)
[2019-03-30 08:19] VITALS: BP 128/70
--- NOTE | 2019-03-30 09:12 | NUR ---
ASSUMED CARES AT 0700. DOCTOR KINDRA CAME TO SEE PT LAST NIGHT. NO NEW ORDER NOTED AT THIS MOMENT. PT ALERT AND ORIENTED X4, FORGETFUL AT TIME. OT CAME TO ASSIST PT SHOWER THIS AM. VITALS REMAIN STABLE. DENIES PAIN, CONSTIPATION. NAUSEA. REMAINS ON SEIZURE PRECAUTIONS. UP WITH 1 MIN ASSIST, GB AND WALKER AND TOLERATED WELL. OFFERED SUPPORTIVE CARE. ENCOURAGED PT TO GET UP AND VOICE HER NEEDS. HER GOALS IS TO PARTICIPATE WITH THERAPY. FREQUENT VISUAL CHECKS. CALL LIGHT WITHIN REACH. FALL PRECAUTION IN PLACE. WILL CONTINUE TO MONITOR. PT IS SITTING IN RECLINER AND EATING BREAKFAST AT THIS MOMENT.
--- NOTE | 2019-03-30 12:08 | H ---
[facility] [place] [address] HISTORY AND PHYSICAL Name: AUGUSTOMARY KATELORENZO A Room #: 513-P ADM IN M.R.#: [id number] Admission: 03/20/19 Attend Phys: Alexander Valentin MD Discharge: Date of : 41 Report #: [id number] THIS REPORT FOR: //name// CC: Alexander Clark DATE OF SERVICE: 03/21/2019 HISTORY AND PHYSICAL/POSTADMISSION PHYSICIAN EVALUATION HISTORY OF PRESENT ILLNESS: The patient is a 73-year-old female who was originally admitted to [facility] due to worsening psychiatric status over the past 6 months. She had a seizure and ended up having an EEG that showed diffuse slowing. MRI showed an old lacunar infarct. She subsequently remained seizure free during her admission was also treated for hyperammonemia and hypernatremia. She was then transferred to the Senior Behavioral Unit at [facility]. She has been noted to have worsening cognition superimposed on the prior dementia. She had an elevated lithium level as well as hypercalcemia with calcium level 11.5-12.2. She was transferred to the acute Med/Surg salcedo for aggressive IV hydration. She has gradually medically stabilized, but with her cognitive decline and functional decline, she has not been admitted for acute in-hospital inpatient rehabilitation to try to maximize her functional independence, so we can get her back into the home setting. PAST MEDICAL HISTORY: Include bipolar disorder, seizure disorder, hypertension. MEDICATIONS: Please see the full medication listing. ALLERGIES: LISINOPRIL. HABITS: Uncertain if ever smoked. FAMILY HISTORY: Father was noted to have alcohol abuse. REVIEW OF SYSTEMS: No current complaints of chest pain, shortness of breath or abdominal discomfort. PHYSICAL EXAMINATION: GENERAL: A 73-year-old white female, pleasant, somewhat forgetful, with some latency to her responses. VITAL SIGNS: Temperature 98.2, pulse 66, respirations 16, blood pressure 135/60. She is obese. HEENT: Facies are symmetric. CHEST: Sounded clear to auscultation. CARDIOVASCULAR: Regular rate and rhythm. [facility] [place] [address] HISTORY AND PHYSICAL Name: ASHLEYLORENZO Jessica Room #: 513-P [facility] IN M.R.#: [id number] Admission: 03/20/19 Attend Phys: Alexander Valentin MD Discharge: Date of : 41 Report #: [id number] ABDOMEN: Bowel sounds positive. GENITOURINARY AND RECTAL: Deferred. EXTREMITIES: Functional range of motion of the upper and lower extremities. Strength is probably a grade 3+ to 4-/5 able to lift bilateral lower extremities antigravity. She does have a decreased recall of events. The patient was seen earlier and has been getting up with nursing with standby assistance to min assist. She has been utilizing a walker. SOCIAL HISTORY: Apparently, she has been home with son at more of a wheelchair level required assist for transfers, but prior to a month ago was apparently ambulatory and independent with basic ADLs. ASSESSMENT: A 73-year-old white female with the following problems: 1. Toxic metabolic encephalopathy. Appears to be superimposed on some baseline dementia. 2. Elevated lithium level. This has been stopped with her worsening renal function. 3. Severe hypercalcemia, noted to be improved with hydration and medical management prior to rehabilitation admission. Last calcium was 8.0. 4. Hyperammonemia. 5. Recent seizure episodes at [facility]. Apparently had 2 seizures. 6. Acute renal insufficiency. 7. Manic depression. 8. Bipolar disorder, history of ECT in the past. 9. MRI with old lacunar infarct. 10. Functional mobility and activities of daily living deficits with decreased cognition. PLAN: The patient has been admitted for acute in-hospital inpatient rehabilitation. From a postadmission physician evaluation perspective, there are no relevant changes since the preadmission screening. Please see the review of prior and current medical and functional conditions and comorbidities. Please see the patient's previous and current functional status. As far as risk of complications, the patient has multiple medical comorbidities as noted above. Initial plan of care involves the interdisciplinary acute inpatient rehabilitation program with goal of maximizing her functional independence, so she can hopefully return back to her prior living situation. Measurable functional goals would be for the patient to become modified independent with transfers, mobility, ADLs and improved cognition, so she can return back home with family. Prognosis is reasonably good. Estimated length of stay probably at least 10 days to 2 weeks and likely longer. Potential barriers would include her multiple medical comorbidities and decreased functional status. The patient meets diagnostic criteria for an acute in-hospital inpatient rehabilitation stay. She meets the medical necessity criteria and we will have [address] [address] HISTORY AND PHYSICAL Name: LORENZO RAMIREZ Room #: 513-P [facility] IN [facility].#: [id number] Admission: 03/20/19 Attend Phys: Alexander Valentin MD Discharge: Date of : 41 Report #: [id number] the multiple franchise business consultant physicians continue to follow. She does have the tolerance for therapies and has appropriate discharge goals back to the home setting. <ELECTRONICALLY SIGNED> By: Alexander Valentin MD 03/30/19 1208 [id number] Alexander Valentin MD /[facility]
--- NOTE | 2019-03-30 12:08 | PLAN ---
[facility] [place] [address] REHAB UNIT PLAN OF CARE Name: AUGUSTOMARY KATELORENZO Jessica Room #: 513-P ADM IN M.R.#: [id number] Admission: 03/20/19 Attend Phys: Alexander Valentin MD Discharge: Date of : 41 Report #: [id number] THIS REPORT FOR: //name// CC: Alexander Clark DATE OF SERVICE: 03/22/2019 PROGRESS NOTE AND OVERALL PLAN OF CARE SUBJECTIVE: She is in no distress. This morning; temperature 98, pulse 66, respirations 20, blood pressure 124/72. She is pleasant, follows basic commands, cooperative. Transfers are min assist. Gait was up to 100 feet without a device and then with a front-wheeled walker, min assist for safety balance. She has flexed posture, rounded shoulders, downward gaze. She also negotiate 4 stairs with assistance. She has been needing assistance for basic ADLs. She had significant cognitive deficits that appear to be improving. She is certainly more alert and is cooperative this morning. ASSESSMENT: 1. Toxic metabolic encephalopathy. 2. Elevated lithium level, which was stopped with her worsening renal function. 3. Severe hypercalcemia, which was improved with hydration and medical management. 4. Recent seizure episodes x 2 at [facility]. 5. Hyperammonemia. 6. Acute renal insufficiency. 7. Manic depression. 8. Bipolar disorder. 9. 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 PLAN: The patient is continuing in the current therapy program. As far as the overall plan of care, this is based on the preadmission screen, post-admission physician evaluation and information garnered from therapy assessments. 1. Estimated length of stay is probably at least 10 days to 2 weeks. 2. Medical prognosis is reasonably good. 3. Anticipated interventions includes the interdisciplinary acute inpatient rehabilitation program. 4. Anticipated functional outcomes would be for the patient to become modified independent with transfers, mobility and ADLs and to improve as far as overall cognition, so she can return back to the home setting. 5. Discharge destination would be back to the home setting where she has been living with her son and had been more of a wheelchair level in the past month or so prior to her [facility] stay. 6. Expected therapy by discipline includes PT, OT and speech 1 hour per day [address] [address] REHAB UNIT PLAN OF CARE Name: LORENZO RAMIREZ Room #: 513-P [facility] IN [facility]#: [id number] Admission: 03/20/19 Attend Phys: Alexander Valentin MD Discharge: Date of : 41 Report #: [id number] each 5 days a week throughout the duration of the acute inpatient rehabilitation stay. <ELECTRONICALLY SIGNED> By: Alexander Valentin MD 03/30/19 1208 [id number] Alexander Valentin MD /PMT
--- NOTE | 2019-03-30 12:40 | NUR ---
team meeting, recommendation: assist from daughter or son with bills and pills. maninder welsh ( pt, ot, st and nursing). Fww from [facility]. outpt neuro psych. follow up with pt previous psych MD.
--- NOTE | 2019-03-30 14:45 | NUR ---
DISCHARGE PLANNING. DISCHARGE ANTICIPATED FOR 03/31 PER UNIT CM. DISCHARGE TO HOME WITH [facility] PER REQUEST. CLINICAL INFORMATION FAXED TO [facility] INTAKE. CALL PLACED TO [facility] TO VERIFY INFORMATION RECEIVED AND START OF SERVICE. SPOKE WITH FABRICE WITH ANSWERING SERVICE, WILL RELAY MESSAGE TO INTAKE. INTAKE TO NOTIFY CM. FOLLOWING.
[2019-03-30 19:23] VITALS: BP 122/70; BP 159/77
--- NOTE | 2019-03-30 22:42 | NUR ---
PT ASSESSMENT DONE AND VSS. MEDS GIVEN AND WELL TOLERATED. FALL PRECAUTIONS IN PLACE. SLEEPING WELL. HOURLY ROUNDING. CALL LIGHT IN REACH. WILL CONTINUE TO MONITOR.
[2019-03-31] MEDS ORDERED: ONDANSETRON HCL4 M3 PO (08:11)
[2019-03-31 08:27] VITALS: BP 159/77
[2019-03-31 10:30] VITALS: BP 112/59
[2019-03-31] MEDS ORDERED: PROTONIX 20 MG20 MG PO ×2 (12:59→13:15)
[2019-03-31] MEDS ORDERED: SEROQUEL 25 MG25 MG PO (13:12)
[2019-03-31] MEDS ORDERED: CENTRUM SILVER1 EAC4 PO (13:15)
[2019-03-31] MEDS ORDERED: VITAMIN B-12100 MC1 PO (13:15)
[2019-03-31] MEDS ORDERED: LIPITOR80 MG PO (13:15)
[2019-03-31] MEDS ORDERED: DULCOLAX STOOL100 M1 PO (13:15)
[2019-03-31] MEDS ORDERED: ASA81BEC PO (13:15)
[2019-03-31] MEDS ORDERED: KEPPRA 500 MG500 M1 PO (13:15)
[2019-03-31] MEDS ORDERED: METOPROLOL TART25 MG PO (13:15)
[2019-03-31] MEDS ORDERED: SYNTHROID100 MC1 PO (13:15)
[2019-03-31] MEDS ORDERED: LEXAPRO 10 MG T10 M2 PO (13:15)
[2019-03-31] MEDS ORDERED: ACETAMINOPHEN650 M5 PO (13:15)
[2019-03-31] MEDS ORDERED: SENOKOT8.6 MG PO (13:15)
--- NOTE | 2019-03-31 13:26 | NUR ---
ASSUMED CARE OF PATIENT AT 0700. VSS. ROOM AIR. ALERT AND ORIENTED X 4. EXTENSIVE DISCHARGE EDUCATION PROVIDED BY NURSE AND PROVIDER WITH FAMILY INCLUDED IN EDUCATION. PATIENT DISCHARGING HOME WITH FAMILY AND HH. PATIENT BEING TRANSPORTED BY [facility].
[2019-03-31] MEDS ORDERED: LOSARTAN POTASS50 MG PO (17:29)
[2019-03-31] MEDS ORDERED: REGLAN 10 MG TA10 MG PO (17:29)
--- NOTE | 2019-04-04 14:08 | HC ---
[facility] [place] [address] CONSULTATION Name: AUGUSTOMARY KATELORENZO A Room #: 513-P [facility] IN ..#: [id number] Admission: 03/20/19 Attend Phys: Alexander Valentin MD Discharge: 03/31/19 Date of : 41 Report #: [id number] THIS REPORT FOR: //name// CC: Alexander Valentin En Clark DATE OF SERVICE: 03/29/2019 NEUROBEHAVIORAL STATUS EXAMINATION ATTENDING PHYSICIAN: Alexander Valentin M.D. SALES DEVELOPMENT DIRECTOR: Alvin Mascorro, PhD. CLINICAL PRESENTATION: The patient is a 73-year-old female who was initially admitted to the [facility] due to deteriorating mental status over the past 6 months. She is reported to have had a seizure and ended up having an EEG, which revealed diffuse slowing. 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 The patient was also treated for hyperammonemia and hypernatremia. She was subsequently transferred to the Senior Behavioral Unit at the [facility] and was noted to have a worsening cognitive function, superimposed on a prior dementia. Her admission to the rehabilitation unit includes toxic metabolic encephalopathy. Appears to be superimposed on baseline dementia, elevated lithium level, severe hypercalcemia, hyperammonemia, recent seizure disorder, acute renal insufficiency, bipolar disorder with a history of ECT, MRI with an old lacunar infarction and functional mobility and activities of daily living deficits with decreased cognition. Prior to this most recent admission, she was living with her son in his home. She had 2 children. Her in 2014. 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 The patient is a high school graduate. The patient was hypomanic and somewhat euthymic throughout the interview. Decreased insight to her deficits is suggested. TECHNIQUES UTILIZED: Clinical interview, review of medical records, staff consultation and behavioral observation, mini mental status exam 2 standard version and clock drawing. EXAMINATION FINDINGS: The patient was alert and cooperative with the assessment. She accurately described events surrounding her admission. However, she was somewhat vague about recall of immediate events. She reports having had a blackout prior to her admission and thought that related to possible seizure activity. She did not report having been at the [address] [address] CONSULTATION Name: LORENZO RAMIREZ Room #: 513-P [facility] IN [facility].#: [id number] Admission: 03/20/19 Attend Phys: Alexander Valentin MD Discharge: 03/31/19 Date of : 41 Report #: [id number] psychiatric unit. Her speech was tangential and with verbosity. Her symptoms are reported in word finding and decreased appetite. She denied difficulty with sleep, memory, anxiety or depression or prior abuse of alcohol or other drugs. Her performance on the MMSE 2 brief version is extremely low with a raw score of 10/16, which is a T score of 14 and percentile rank of less than 1. The patient was 3/3 for initial registration, 3/5 for orientation to time, 2/[address] and 2/3 for immediate recall of 3 items after a brief time delay and distraction. Performance on the MMSE 2 standard version was extremely low with a raw score of 20/30, T score of 24 and percentile rank of less than 1. She was 1/5 for serial sevens, 1/1 for naming, 1/1 for repetition, 3/3 for auditory comprehension. She could read and follow a single command and write a sentence. The patient could copy a simple geometric design. Letter fluency was within normal limits. DIAGNOSTIC IMPRESSION: Bipolar disorder by history. Neurocognitive disorder -- extent to be determined, likely in the moderate range. RECOMMENDATIONS: Continued psychiatric management of medication for mood and behavior. She will likely benefit from speech therapy to assist with the development and implementation of compensatory strategies for areas of decreased functioning. The patient will require assistance in the management of medication, finances and nutrition. A followup neuropsychological assessment in approximately 6-9 months will be of benefit to clarify cognitive status. At this time, supervision is necessary to maintain safety. Thank you very much for allowing me to provide the consultation on this patient. <ELECTRONICALLY SIGNED> By: Alvin Mascorro, PhD 04/04/19 1408 [id number] Alvin Mascorro, PhD /nt
== END 2019-03-31 13:31 | disposition home health service (06) | DRG 92 ==
LOC: ENTRNSPT 03-31 13:23 → EDTRNSPTSTS 03-31 13:25
PROVIDERS: Nurse Practitioner; ADMIT Physical Medicine & Rehabilitation
DX: G92 Toxic encephalopathy (principal); E72.20 Disorder of urea cycle metabolism, unspecified; N39.0 Urinary tract infection, site not specified; F31.10 Bipolar disorder, current episode manic without psychotic features, unspecified; E83.52 Hypercalcemia; E03.9 Hypothyroidism, unspecified; E78.5 Hyperlipidemia, unspecified; I10 Essential (primary) hypertension; R41.0 Disorientation, unspecified; E86.0 Dehydration; R41.9 Unspecified symptoms and signs involving cognitive functions and awareness; B95.2 Enterococcus as the cause of diseases classified elsewhere; R53.81 Other malaise; G40.909 Epilepsy, unspecified, not intractable, without status epilepticus; F03.90 Unspecified dementia, unspecified severity, without behavioral disturbance, psychotic disturbance, mood disturbance, and anxiety; E87.6 Hypokalemia; N28.9 Disorder of kidney and ureter, unspecified; R13.10 Dysphagia, unspecified; D72.829 Elevated white blood cell count, unspecified; K59.00 Constipation, unspecified; E53.8 Deficiency of other specified B group vitamins; E83.42 Hypomagnesemia; Z88.8 Allergy status to other drugs, medicaments and biological substances; Z86.73 Personal history of transient ischemic attack (TIA), and cerebral infarction without residual deficits; Z79.899 Other long term (current) drug therapy; Z79.51 Long term (current) use of inhaled steroids; Z23 Encounter for immunization
CPT/HCPCS: 10112